=== PATIENT | female | born 1955 | race Caucasian/White ===

== ENCOUNTER 2017-08-23 10:56 | Inpatient (IN) | payer BC ==
[2017-08-23] MEDS ORDERED: Morphine 2 MG/ML Syringe IVPUSH ONE (11:08)
[2017-08-23] MEDS ORDERED: Sodium Chloride 0.9% 1,000 ML IV ONE (11:08)
--- NOTE | 2017-08-23 11:10 | EDM.PDOC ---
ED HPI GENERAL MEDICAL PROBLEM - General Chief Complaint: Abdominal Pain Stated Complaint: ER Time Seen by Provider: 08/23/17 11:06 Source of Information: Reports: Patient, EMS Notes Reviewed, RN, RN Notes Reviewed History Limitations: Reports: No Limitations - History of Present Illness INITIAL COMMENTS - FREE TEXT/NARRATIVE: Patient is brought to the emergency room at [place] via EMS for an acute onset of abdominal pain that started around 9:30 this morning. The patient states her she has not had this pain in the past. The patient states that the pain is sharp and stabbing. The patient denies any radiation of the pain. The patient states the pain is located in the left upper and left lower quadrant of the abdomen. The patient denies any UTI symptoms. The patient states that she has noticed one episode of ariadna stool which was very small. The patient states she feels very nauseated but has not vomited. The patient denies any overt diarrhea. The patient denies any focal neurological deficit. The patient denies any chest pain or shortness of breath. The patient does feel very fatigued and tired. The patient's appetite has decreased over the past few days. The patient states she is trying to stay well-hydrated with good by mouth fluid intake. The patient has not had any change in any medications. The patient currently does not take any NSAIDs. The patient is not on a daily aspirin. The patient does take prednisone 5 mg daily for her rheumatoid arthritis. The patient is also on Enbrel. The patient is currently taking Nexium 40 mg daily for history of peptic ulcer disease. 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 Left Middle Abdominal Pain Score (Numeric/FACES): 8 - Related Data Allergies Allergy/AdvReac Type Severity Reaction Status Date / Time No Known Allergies Allergy Verified 08/23/17 11:25 Home Meds: Home Meds Cetirizine HCl/Pseudoephedrine [Zyrtec-D Tablet] 1 each PO DAILY 07/13/15 [ History] Esomeprazole [NexIUM] 40 mg PO DAILY 07/13/15 [History] Etanercept [Enbrel] 50 mg SQ WEEKLY 07/13/15 [History] Fluticasone Propionate [Flonase] 16 gm NS DAILY 07/13/15 [History] Multivitamin [Multivitamins] 1 each PO DAILY 07/13/15 [History] [place]-3 Fatty Acids [Fish Oil] 300 mg PO DAILY 07/13/15 [History] Sertraline [Zoloft] 200 mg PO DAILY 07/13/15 [History] predniSONE [Prednisone] 5 mg PO DAILY 07/13/15 [History] traMADol HCl [Ultram] 50 mg PO BID PRN 07/13/15 [History] Lisinopril [Lisinopril] 5 tab PO DAILY 08/23/17 [History] Past Medical History Gastrointestinal History: Reports: PUD Musculoskeletal History: Reports: Arthritis Social & Family History - Family History Family Medical History: Noncontributory - Tobacco Use Smoking Status *Q: Never Smoker ED ROS GENERAL - Review of Systems Review Of Systems: See Below Constitutional: Reports: Decreased Appetite. Denies: Fever, Chills Respiratory: Denies: Shortness of Breath, Cough Cardiovascular: Denies: Chest Pain, Palpitations GI/Abdominal: Reports: Abdominal Pain, Bloody Stool, Decreased Appetite, Nausea. Denies: Vomiting ED EXAM, GI/ABD - Physical Exam Exam: See Below Exam Limited By: No Limitations General Appearance: Alert, Mild Distress (due to abdominal pain), Thin Respiratory/Chest: No Respiratory Distress, Lungs Clear, Normal Breath Sounds Cardiovascular: Normal Peripheral Pulses, Regular Rate, Rhythm, No Murmur GI/Abdominal Exam: Soft, Tender (LUQ and LLQ), Abnormal Bowel Sounds ( Hyperactive) Rectal (Female) Exam: Deferred Neurological: Alert, Oriented Skin Exam: Warm, Dry, Intact, No Rash, Pallor Course - Vital Signs Last Recorded V/S: Last Vital Signs Temp 36.3 C 08/23/17 14:03 Pulse 72 08/23/17 14:03 Resp 14 08/23/17 14:03 BP 134/46 L 08/23/17 14:03 Pulse Ox 93 L 08/23/17 14:03 - Orders/Labs/Meds Orders: Active Orders 24 hr Category Date Time Status Abdomen Pelvis w Cont [CT] Stat Exams 08/23/17 11:09 Taken Sodium Chloride 0.9% [Saline Flush] Med 08/23/17 11:07 Active 10 ml FLUSH ASDIRECTED PRN Peripheral IV Insertion Adult [OM.PC] Routine Oth 08/23/17 11:07 Ordered Medication Orders Sodium Chloride (Saline Flush) 10 ml FLUSH ASDIRECTED PRN PRN Reason: Keep Vein Open Labs: Laboratory Tests 08/23/17 08/23/17 08/23/17 Range/Units 11:17 11:17 11:17 WBC 8.9 (4.0-10.0) x10^3/uL RBC 2.86 L (4.00-5.50) x10^6/uL Hgb 8.7 L D (12.0-16.0) g/dL Hct 28.1 L (33.0-47.0) % MCV 98.3 H (78.0-93.0) fL MCH 30.4 (26.0-32.0) pg MCHC 31.0 L (32.0-36.0) g/dL RDW Coeff of Stanley 14.6 (10.0-15.0) % Plt Count 547 H D (130-400) x10^3/uL Add Manual Diff Yes Neutrophils % (Manual) 84 H (50-80) % Band Neutrophils % 4 (0-6) % Lymphocytes % (Manual) 5 L (25-50) % Monocytes % (Manual) 3 (2-11) % Eosinophils % (Manual) 4 (0-4) % Nucleated RBCs 1 (0-5) /100WBC Platelet Estimate Increased H Clumped Platelets Rare H Polychromasia 1+ slight H Hypochromasia 1+ slight H Anisocytosis 1+ slight H Macrocytosis 1+ slight H Stomatocytes 1+ slight H Sodium 140 (136-145) mmol/L Potassium 4.2 (3.5-5.1) mmol/L Chloride 104 (98-107) mmol/L Carbon Dioxide 23 (21-32) mmol/L BUN 27 H (7-18) mg/dL Creatinine 1.3 H (0.55-1.02) mg/dL Est Cr Clr Drug Dosing 36.16 mL/min Estimated GFR (MDRD) 41 Glucose 120 H (74-106) mg/dL Lactic Acid 1.5 (0.4-2.0) mmol/L Calcium 10.1 (8.5-10.1) mg/dL Corrected Calcium 10.74 H (8.5-10.1) mg/dL Total Bilirubin < 0.2 L (0.2-1.0) mg/dL AST 24 (15-37) U/L ALT 21 (14-59) U/L Alkaline Phosphatase 79 (46-116) U/L C-Reactive Protein 2.1 H (<=0.9) mg/dL Total Protein 7.1 (6.4-8.2) g/dL Albumin 3.2 L (3.4-5.0) g/dL Globulin 3.9 Albumin/Globulin Ratio 0.82 Amylase 127 H (25-115) U/L Lipase 285 (73-393) U/L Urine Color (YELLOW) Urine Appearance (CLEAR) Urine pH (5.0-8.0) Ur Specific [place] Urine Protein (NEGATIVE) mg/dL Urine Glucose (UA) (NEGATIVE) mg/dL Urine Ketones (NEGATIVE) mg/dL Urine Occult Blood (NEGATIVE) Urine Nitrite (NEGATIVE) Urine Bilirubin (NEGATIVE) Urine Urobilinogen (0.2) EU/dL Ur Leukocyte Esterase (NEGATIVE) Urine RBC (NOT SEEN) /HPF Urine WBC (NOT SEEN) /HPF Ur Transition Epith Cell (NEGATIVE) /HPF Urine Bacteria (NEGATIVE) /HPF Urine Mucus (NEGATIVE) /LPF 08/23/17 Range/Units 13:27 WBC (4.0-10.0) x10^3/uL RBC (4.00-5.50) x10^6/uL Hgb (12.0-16.0) g/dL Hct (33.0-47.0) % MCV (78.0-93.0) fL MCH (26.0-32.0) pg MCHC (32.0-36.0) g/dL RDW Coeff of Stanley (10.0-15.0) % Plt Count (130-400) x10^3/uL Add Manual Diff Neutrophils % (Manual) (50-80) % Band Neutrophils % (0-6) % Lymphocytes % (Manual) (25-50) % Monocytes % (Manual) (2-11) % Eosinophils % (Manual) (0-4) % Nucleated RBCs (0-5) /100WBC Platelet Estimate Clumped Platelets Polychromasia Hypochromasia Anisocytosis Macrocytosis Stomatocytes Sodium (136-145) mmol/L Potassium (3.5-5.1) mmol/L Chloride (98-107) mmol/L Carbon Dioxide (21-32) mmol/L BUN (7-18) mg/dL Creatinine (0.55-1.02) mg/dL Est Cr Clr Drug Dosing mL/min Estimated GFR (MDRD) Glucose (74-106) mg/dL Lactic Acid (0.4-2.0) mmol/L Calcium (8.5-10.1) mg/dL Corrected Calcium (8.5-10.1) mg/dL Total Bilirubin (0.2-1.0) mg/dL AST (15-37) U/L ALT (14-59) U/L Alkaline Phosphatase (46-116) U/L C-Reactive Protein (<=0.9) mg/dL Total Protein (6.4-8.2) g/dL Albumin (3.4-5.0) g/dL Globulin Albumin/Globulin Ratio Amylase (25-115) U/L Lipase (73-393) U/L Urine Color Yellow (YELLOW) Urine Appearance Clear (CLEAR) Urine pH 5.5 (5.0-8.0) Ur Specific [place] <=1.005 Urine Protein Negative (NEGATIVE) mg/dL Urine Glucose (UA) Negative (NEGATIVE) mg/dL Urine Ketones Negative (NEGATIVE) mg/dL Urine Occult Blood Trace-intact H (NEGATIVE) Urine Nitrite Negative (NEGATIVE) Urine Bilirubin Negative (NEGATIVE) Urine Urobilinogen 0.2 (0.2) EU/dL Ur Leukocyte Esterase Negative (NEGATIVE) Urine RBC 0-5 (NOT SEEN) /HPF Urine WBC 0-5 (NOT SEEN) /HPF Ur Transition Epith Cell Rare H (NEGATIVE) /HPF Urine Bacteria Few H (NEGATIVE) /HPF Urine Mucus Rare H (NEGATIVE) /LPF Meds: Medications Generic Name Dose Route Start Last Admin Trade Name Freq PRN Reason Stop Dose Admin Sodium Chloride 10 ml 08/23/17 11:07 Saline Flush FLUSH ASDIRECTED PRN Keep Vein Open Discontinued Medications Generic Name Dose Route Start Last Admin Trade Name Freq PRN Reason Stop Dose Admin Hydromorphone HCl 1 mg 08/23/17 12:23 08/23/17 12:33 Dilaudid IVPUSH 08/23/17 12:24 1 mg ONETIME ONE Administration Sodium Chloride 1,000 mls @ 999 mls/hr 08/23/17 11:08 08/23/17 11:15 Normal Saline IV 08/23/17 12:08 999 mls/hr ONETIME ONE Administration Iopamidol 100 ml 08/23/17 11:36 08/23/17 12:24 Isovue-300 (61%) IVPUSH 08/23/17 11:37 100 ml ONETIME ONE Administration Morphine Sulfate 1 mg 08/23/17 11:08 08/23/17 11:15 Morphine IVPUSH 08/23/17 11:09 1 mg ONETIME ONE Administration Ondansetron HCl 4 mg 08/23/17 11:11 08/23/17 11:21 Zofran IVPUSH 08/23/17 11:12 4 mg ONETIME ONE Administration - Radiology Interpretation Free Text/Narrative:: CT Abd/Pelvis w/contrast: Nonspecific wall thickening of multiple segments of the colon and the distal 3rd of the stomach which may be inflammatory, infectious, or neoplastic. Apparent interval resection of a complex pelvic mass. No residual ascites. See scanned report in EMR. CT Results Date: 08/23/17 CT Results Time: 12:42 Departure - Departure Time of Disposition: 13:57 Disposition: Admitted As Inpatient 64 Condition: Good Clinical Impression: Low hemoglobin, Acute kidney injury Abdominal pain Qualifiers: Abdominal location: upper abdomen Qualified Code(s): R10.10 - Upper abdominal pain, unspecified - Discharge Information ED Communication - ED Communication Date/Time Date: 08/23/17 Time Called: 13:27 - Discussed Case With (1) Discussed Case With (1): Outpatient Provider (Dr. Rust, Surgeon. Case discussed. Recommend acute admit as patient is not a surgical candidate for anything acute.) - Conversation Summary Admitting Provider Agreed to Patient's Admission: Yes Patient Aware of Amendments fo Care Plan: Yes - Problem List Review Problem List Initiated/Reviewed/Updated: Yes - My Orders Last 24 Hours: My Active Orders 08/23/17 11:07 Sodium Chloride 0.9% [Saline Flush] 10 ml FLUSH ASDIRECTED PRN Peripheral IV Insertion Adult [OM.PC] Routine 08/23/17 11:09 Abdomen Pelvis w Cont [CT] Stat - Assessment/Plan Last 24 Hours: My Active Orders 08/23/17 11:07 Sodium Chloride 0.9% [Saline Flush] 10 ml FLUSH ASDIRECTED PRN Peripheral IV Insertion Adult [OM.PC] Routine 08/23/17 11:09 Abdomen Pelvis w Cont [CT] Stat Plan: Case discussed with Dr. Rhoades, admitting provider. Patient will be admitted acute for low hemoglobin, JOCY, and abdominal pain. Admission discussed with patient who agrees to stay.
[2017-08-23] MEDS ORDERED: Ondansetron 4 MG/2 ML SDV IVPUSH ONE (11:11)
[2017-08-23] MEDS ORDERED: Iopamidol 612 MG/ML 100 ML Bottle IVPUSH ONE (11:36)
[2017-08-23 11:43] LABS: CHLORIDE,CL 104 mmol/L (98-107); SODIUM,NA 140 mmol/L (136-145)
[2017-08-23] MEDS ORDERED: HYDROmorphone 1 MG/ML Syringe IVPUSH ONE (12:23)
[2017-08-23] MEDS ORDERED: Acetaminophen 325 MG Tab PO PRN (15:13)
[2017-08-23] MEDS ORDERED: Ondansetron 4 MG Tab.DIS PO PRN (15:13)
[2017-08-23] MEDS: Pantoprazole 40 MG Vial IVPUSH SCH ×2 (15:20→19:59)
[2017-08-23] MEDS: metroNIDAZOLE/Normal Saline 500 MG in Premix Bag 1 BAG IV SCH (15:22)
[2017-08-23] MEDS ORDERED: Sodium Chloride 0.9% 1,000 ML IV SCH (15:30)
[2017-08-23] MEDS: Ciprofloxacin in D5W 400 MG in Premix Bag 1 BAG IV SCH ×2 (16:33)
[2017-08-23] MEDS ORDERED: Ibuprofen 200 MG Tab PO STA (22:07)
--- NOTE | 2017-08-23 23:23 | PCM.HP ---
H&P History of Present Illness - General Date of Service: 08/23/17 Admit Problem/Dx: Admission Diagnosis/Problem Admission Diagnosis/Problem Low hemoglobin - History of Present Illness Initial Comments - Free Text/Narative: Chief Complaint: L abdominal pain History of Present Illness: She works at [employer] and was at work today when she started noticing a sharp pain in her L abdomen, first milder and then it became more severe, aching. She did not have any nausea or vomiting. She had a small maroon colored stool but has not had any diarrhea. She decided after lunch to go home and when she got up she had a nearsyncopal spell and coworkers called the ambulance to bring her to ER. By arrival at the ER or shortly after her abdominal pain essentially cleared, but she does have a headache. She has resisted having a colonoscopy, never had one, never had any DX of diverticulosis. In the ER she had a CT of abdomen and pelvis, this did show some intermittent thickening in areas of her transfers and lower colon. Her WBC was normal but had L shift. Amylase was minimally elevated, UA was negative. She does have Hx of peptic ulcer disease and gastritis. Is on PPI. Hb, which had been 12.3 in 05/11 has dropped to 8.7, with mild macrocytosis. She has known Chronic Kidney Disease stage 3, and her GFR in the ER was 41, unchanged. In the ER they did a phone consult with surgery, recommended to put her on IV antibiotic and give her blood. She is just about to get that at the time of this exam. Medical History: -Rheumatoid arthritis for about 20 years, Rx with prednisone and Enbrel -Pseudogout of wrist 06/06 -Peptic ulcer disease 06/07 DX of osteopenia and 12, irritable bowel syndrome , hypertension and hypercalcemia. -Rx for depression 04/01, recently her dose of Zoloft was increased -Hx of anemia 02/01 -Hx allergic rhinitis 09/29 Surgical History: -Para 2 -EGD 08/07, 10/05 hysterectomy for a rapidly enlarging uterus, found to be a dermoid cyst 03/10 -Bilateral total knee replacement 12/08 -Hx reconstruction of rotator cuff of R shoulder for degenerative tendinitis -Cholecystectomy -Appendectomy Family History: Parents and a number of siblings are still living, parents have heart disease Social History: [place], moved with to for his job, they and he moved to [place], she continued to live here and work [employer]. Primary care from [facility] in the clinic. Systems Review: -Constitutional: Thinks her general health has been good -Eyes: Never any cataracts or eye problems -ENT hearing is good and she has her own teeth, recently saw the dentist -Cardiac: Started on lisinopril 05/11 for a new DX of hypertension, no other problems -Pulmonary: Never a smoker, no lung trouble -GI: As above, had gastroenteritis 5 days ago, mainly nausea and vomiting, not diarrhea and has not had any black or bloody stools -: Bladder function is good -Musculoskeletal: Rx by Dr. Dickinson for her rheumatoid arthritis for about 20 years, mainly affecting her hands, knees, and shoulders so she has had knee replacement and shoulder surgery. She will have shoulder surgery again soon on the R by Dr. Ac, her orthopedist. 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 -Neurologic: No problems except for this episode of near syncope; gets headaches when she is under stress, has only had migraines when she is in the hospital; she has a headache now, started about the time of admission -Psych: Chronic depression, on Zoloft for a long time and had her dose increased in April, and says it has helped, mood is quite good now Physical Exam: -General: Does not appear in distress, VS OK -Eyes: Pupils equal -ENT: Teeth, posterior pharynx, tongue normal -Neck: No thyroid enlargement, masses, or bruit -Chest: Lung sounds clear, no respiratory distress or dyspnea -Cardiac: Heart sounds normal and regular, no ankle edema, pulses palpable in feet -Abdomen: No tenderness to palpation, even in LLQ, soft with no distention, no masses palpable -Pelvic and rectal: not done -Extremities: Surgical scars over her knees, thickening of the MCP and IP joints of her hands -Neurologic: Speech, movement of arms and legs, facial muscles all normal and symmetric -Psych: Affect seems normal Impression: -Near syncope secondary to anemia from apparently chronic blood loss AK: Note she is macrocytic rather than microcytic -Hx upper GI bleed from peptic ulcer disease but no evidence of acute GI bleed now -Abnormalities of colon on CT, clearly needs colonoscopy to R/O tumor or inflammatory disease -Rheumatoid arthritis, on prednisone and Enbrel Plan: -Blood transfusion as ordered -Continue antibiotics for now but plan to stop soon if no fever, in view of her negative UA -Should get colonoscopy soon Left Middle Abdominal Pain Score (Numeric/FACES): 0 Headache Pain Score (Numeric/FACES): 3 - Related Data Allergies/Adverse Reactions: Allergies Allergy/AdvReac Type Severity Reaction Status Date / Time No Known Allergies Allergy Verified 08/23/17 11:25 Home Medications: Home Meds Esomeprazole [NexIUM] 40 mg PO DAILY 07/13/15 [History] Etanercept [Enbrel] 50 mg SQ SA@0800 07/13/15 [History] Fluticasone Propionate [Flonase] 1 spray NASBOTH DAILY 07/13/15 [History] Multivitamin [Multivitamins] 1 cap PO DAILY 07/13/15 [History] Sertraline [Zoloft] 200 mg PO DAILY 07/13/15 [History] predniSONE [Prednisone] 5 mg PO DAILY 07/13/15 [History] traMADol HCl [Ultram] 50 mg PO BID PRN 07/13/15 [History] Lisinopril 5 mg PO DAILY 08/23/17 [History] Loratadine/Pseudoephedrine [Hm Allergy-Congestion 12Hr Tab] 1 tab PO DAILY 08/23 [History] [place]-3/DHA/Epa/Fish Oil [[place]-3 Fish Oil 1,000 MG Sfgl] 1,000 mg PO DAILY [History] Past Medical History Cardiovascular History: Reports: High Cholesterol, Hypertension Gastrointestinal History: Reports: PUD Genitourinary History: Reports: Chronic Renal Insuffiency Musculoskeletal History: Reports: Arthritis Psychiatric History: Reports: Depression Hematologic History: Reports: Anemia - Past Surgical History Cardiovascular Surgical History: Reports: None GI Surgical History: Reports: None Female Surgical History: Reports: Hysterectomy Musculoskeletal Surgical History: Reports: None Social & Family History - Family History Family Medical History: Noncontributory - Tobacco Use Smoking Status *Q: Never Smoker Second Hand Smoke Exposure: No - Caffeine Use Caffeine Use: Reports: None - Recreational Drug Use Recreational Drug Use: No H&P Review of Systems - Review of Systems: Review Of Systems: See Below Exam - Exam Exam: See Below - Vital Signs Vital Signs: Last Vital Signs Temp 37.3 C 08/23/17 23:10 Pulse 79 08/23/17 23:10 Resp 16 08/23/17 23:10 BP 138/68 08/23/17 23:10 Pulse Ox 98 08/23/17 23:10 Weight: 58.513 kg - Patient Data Lab Results Last 24 hrs: Laboratory Results - last 24 hr 08/23/17 Range/Units 14:45 Blood Type A POSITIVE Gel Antibody Screen Negative Crossmatch See Detail Result Diagrams: 08/23/17 11:17 08/23/17 11:17 *Q Meaningful Use (ADM) - VTE *Q VTE Criteria *Q: - Stroke *Q Stroke Criteria *Q: - AMI *Q AMI Criteria *Q: Problem List Initiated/Reviewed/Updated: Yes Orders Last 24hrs: Active Orders 24 hr Category Date Time Status Patient Status [ADT] Routine ADT 08/23/17 15:13 Active Antiembolic Devices [RC] ,20 Care 08/23/17 15:16 Active Cardiac Monitoring [RC] 06,10,14,18,22,02 Care 08/23/17 15:14 Active Fecal Occult Bld Scn Imm [RC] ASDIRECTED Care 08/23/17 15:21 Active Height and Weight [RC] .PRN Care 08/23/17 15:13 Active Intake and Output [RC] QSHIFT Care 08/23/17 15:14 Active Notify Provider [RC] .PRN Care 08/23/17 14:45 Active Oxygen Therapy [RC] .PRN Care 08/23/17 15:13 Active Up With Assistance [RC] ,20 Care 08/23/17 15:13 Active VTE/DVT Education [RC] .PRN Care 08/23/17 15:13 Active Vital Signs [RC] 06,10,14,18,22,02 Care 08/23/17 15:13 Active Soft Diet [DIET] Diet 08/23/17 Dinner Active BASIC METABOLIC PANEL,BMP [CHEM] Routine Lab 08/24/17 05:11 Ordered CBC WITH AUTO DIFF [HEME] Routine Lab 08/24/17 05:11 Ordered Acetaminophen [Tylenol] Med 08/23/17 15:13 Active 650 mg PO Q4H PRN Ciprofloxacin in D5W [Cipro in D5W 400 MG/200 ML] 400 Med 08/23/17 17:00 Active mg Premix Bag 1 bag IV Q12H Ondansetron [Zofran ODT] Med 08/23/17 15:13 Active 4 mg PO Q6H PRN Pantoprazole [ProTONIX IV] Med 08/23/17 15:15 Active 40 mg IVPUSH BID Sodium Chloride 0.9% [Normal Saline] 1,000 ml Med 08/23/17 15:30 Active IV ASDIRECTED metroNIDAZOLE/Normal Saline [Flagyl 500 MG in NS 100 ML Med 08/23/17 16:00 Active ] 500 mg Premix Bag 1 bag IV Q8H Antiembolic Hose [OM.PC] Per Unit Routine Oth 08/23/17 15:14 Ordered Blood Transfusion Reflex Orders [OM.PC] Routine Oth 08/23/17 14:45 Ordered Transfuse Red Blood Cells [COMM] Routine Oth 08/23/17 14:45 Ordered Resuscitation Status Routine Resus Stat 08/23/17 15:13 Ordered Medication Orders Acetaminophen (Tylenol) 650 mg PO Q4H PRN PRN Reason: Pain (Mild 1-3)/fever Last Admin: 08/23/17 15:53 Dose: 650 mg Ciprofloxacin/Dextrose 400 mg/ (Premix) 200 mls @ 200 mls/hr IV Q12H [facility] Last Admin: 08/23/17 16:33 Dose: 200 mls/hr Metronidazole 500 mg/ Premix 100 mls @ 100 mls/hr IV Q8H [facility] Last Admin: 08/23/17 15:22 Dose: 100 mls/hr Sodium Chloride (Normal Saline) 1,000 mls @ 75 mls/hr IV ASDIRECTED [facility] Last Admin: 08/23/17 16:30 Dose: 75 mls/hr Ondansetron HCl (Zofran Odt) 4 mg PO Q6H PRN PRN Reason: nausea, able to take PO Pantoprazole Sodium (Protonix Iv) 40 mg IVPUSH BID [facility] Last Admin: 08/23/17 19:59 Dose: 40 mg Admin: 08/23/17 15:20 Dose: 40 mg Sodium Chloride (Saline Flush) 10 ml FLUSH ASDIRECTED PRN PRN Reason: Keep Vein Open
[2017-08-24] MEDS: metroNIDAZOLE/Normal Saline 500 MG in Premix Bag 1 BAG IV SCH ×2 (00:23→07:30)
[2017-08-24] MEDS: Ciprofloxacin in D5W 400 MG in Premix Bag 1 BAG IV SCH ×2 (05:12)
[2017-08-24] MEDS: Sodium Chloride 0.9% 10 ML Syringe FLUSH PRN ×2 (06:30→07:30)
[2017-08-24] MEDS: Pantoprazole 40 MG Vial IVPUSH SCH (07:28)
[2017-08-24] MEDS ORDERED: SUMAtriptan 6 MG/0.5 ML SDV SUBCUT ONE (08:11)
--- NOTE | 2017-08-24 09:19 | PCM.PN ---
- General Info Date of Service: 08/24/17 Admission Dx/Problem (Free Text): History: Because of her near syncopal episode prior to admission yesterday, and because of her Lsided abdominal pain, there was suspicion of diverticulitis and she was given IV fluid and IV antibiotic. She also got 2 units of blood for Hb of 8.5, and today her Hb is up to 10.5. She still has a normal WBC, but still has L shift with lymphopenia. She has a headache, got no relief from the ibuprofen that she got last evening, still has pain behind both eyes which feels like a migraine. As noted in her H& P, she has only had migraines when in the hospital for something else, and on those occasions did get relief from Imitrex. She has no abdominal pain or tenderness today. She is tolerating solid food. 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 Exam: -In mild distress from bilateral headache -Abdomen is soft and nontender, even to rather vigorous palpation on both sides -Extremities warm and dry -Alert and lucid and comfortable Impression: -No sign of diverticulitis, can stop antibiotic -Her biggest need is colonoscopy to assess the bleeding and the thickening of the colon noted on CT -Migraine headache, has responded to Imitrex in the past Plan: -Imitrex SC -DC IV fluid and IV antibiotic -Advanced to regular diet -Anticipate D/C tomorrow, will schedule EGD and colonoscopy - Patient Data Vitals - Most Recent: Last Vital Signs Temp 37.0 C 08/24/17 06:00 Pulse 81 08/24/17 06:00 Resp 14 08/24/17 06:00 BP 137/75 08/24/17 06:00 Pulse Ox 97 08/24/17 06:00 Weight - Most Recent: 58.513 kg I&O - Last 24 Hours: Intake & Output 08/23/17 08/24/17 08/24/17 22:59 06:59 14:59 Intake Total 1107 1428 380 Output Total 800 600 Balance 307 828 380 Lab Results Last 24 Hours: Laboratory Results - last 24 hr 08/23/17 08/24/17 08/24/17 Range/Units 14:45 06:15 06:15 WBC 5.8 (4.0-10.0) x10^3/uL RBC 3.43 L (4.00-5.50) x10^6/uL Hgb 10.2 L D (12.0-16.0) g/dL Hct 32.7 L (33.0-47.0) % MCV 95.3 H D (78.0-93.0) fL MCH 29.7 (26.0-32.0) pg MCHC 31.2 L (32.0-36.0) g/dL RDW Coeff of Stanley 17.2 H (10.0-15.0) % Plt Count 449 H D (130-400) x10^3/uL Neut % (Auto) 66.2 (50.0-80.0) % Lymph % (Auto) 9.0 L (25.0-50.0) % [place] % (Auto) 16.9 H (2.0-11.0) % Eos % (Auto) 7.4 H (0.0-4.0) % Baso % (Auto) 0.5 (0.2-1.2) % Sodium 142 (136-145) mmol/L Potassium 4.3 (3.5-5.1) mmol/L Chloride 109 H (98-107) mmol/L Carbon Dioxide 26 (21-32) mmol/L BUN 19 H (7-18) mg/dL Creatinine 1.2 H (0.55-1.02) mg/dL Est Cr Clr Drug Dosing 39.18 mL/min Estimated GFR (MDRD) 45 Glucose 99 (74-106) mg/dL Calcium 8.4 L D (8.5-10.1) mg/dL Blood Type A POSITIVE Gel Antibody Screen Negative Crossmatch See Detail Med Orders - Current: Current Medications Acetaminophen (Tylenol) 650 mg PO Q4H PRN PRN Reason: Pain (Mild 1-3)/fever Last Admin: 08/23/17 15:53 Dose: 650 mg Ondansetron HCl (Zofran Odt) 4 mg PO Q6H PRN PRN Reason: nausea, able to take PO Pantoprazole Sodium (Protonix Iv) 40 mg IVPUSH BID SANDRA Last Admin: 08/24/17 07:28 Dose: 40 mg Sodium Chloride (Saline Flush) 10 ml FLUSH ASDIRECTED PRN PRN Reason: Keep Vein Open Last Admin: 08/24/17 07:30 Dose: 10 ml Discontinued Medications Hydromorphone HCl (Dilaudid) 1 mg IVPUSH ONETIME ONE Stop: 08/23/17 12:24 Last Admin: 08/23/17 12:33 Dose: 1 mg Sodium Chloride (Normal Saline) 1,000 mls @ 999 mls/hr IV ONETIME ONE Stop: 08/23/17 12:08 Last Admin: 08/23/17 11:15 Dose: 999 mls/hr Ciprofloxacin/Dextrose 400 mg/ (Premix) 200 mls @ 200 mls/hr IV Q12H SANDRA Last Admin: 08/24/17 05:12 Dose: 200 mls/hr Metronidazole 500 mg/ Premix 100 mls @ 100 mls/hr IV Q8H [facility] Last Admin: 08/24/17 07:30 Dose: 100 mls/hr Sodium Chloride (Normal Saline) 1,000 mls @ 75 mls/hr IV ASDIRECTED [facility] Last Admin: 08/23/17 16:30 Dose: 75 mls/hr Ibuprofen (Motrin) 600 mg PO NOW STA Stop: 08/23/17 22:08 Last Admin: 08/23/17 22:42 Dose: 600 mg Iopamidol (Isovue-300 (61%)) 100 ml IVPUSH ONETIME ONE Stop: 08/23/17 11:37 Last Admin: 08/23/17 12:24 Dose: 100 ml Morphine Sulfate (Morphine) 1 mg IVPUSH ONETIME ONE Stop: 08/23/17 11:09 Last Admin: 08/23/17 11:15 Dose: 1 mg Ondansetron HCl (Zofran) 4 mg IVPUSH ONETIME ONE Stop: 08/23/17 11:12 Last Admin: 08/23/17 11:21 Dose: 4 mg Sumatriptan Succinate (Imitrex) 6 mg SUBCUT ONETIME ONE Stop: 08/24/17 08:12 Last Admin: 08/24/17 08:26 Dose: 6 mg - Problem List Review Problem List Initiated/Reviewed/Updated: Yes - My Orders Last 24 Hours: My Active Orders 08/24/17 08:09 Communication Order [RC] ROUTINE 08/24/17 Lunch Regular Diet [DIET] 08/25/17 07:30 CBC WITH AUTO DIFF [HEME] Routine
[2017-08-24 10:07] VITALS: BP 128/58
--- NOTE | 2017-08-24 17:35 | PCM.DCSUM1 ---
Discharge Summary - Hospital Course Free Text/Narrative:: Final Diagnosis: -Acute transient Lsided abdominal pain -Nearsyncopal episode -Migraine headache -CT showing abnormality of colon -Rheumatoid arthritis -Chronic Kidney Disease stage 3 Reason for admission: Acute Lsided abdominal pain at work, nearsyncopal episode while getting ready to go home. Mildly abnormal CT abdomen and pelvis and mildly abnormal CBC (L shift with normal WBC) in ER. Drop in Hb from 10.5 down to 8.5 over 3 months. Initial findings: By the time of arrival in ER the abdominal pain was clearing but she was developing a migraine headache. Abdominal exam unremarkable. WBC 8900 with L shift, lymphopenia. Hb down to 8.5, had been 10.53 months earlier[address] UA negative. CT of abdomen and pelvis in the ER unremarkable except for areas of thickening in the transverse and descending colon. Stool Hemoccult positive. Treatment and Course in Hospital: Because of her nearsyncope she was given IV fluid replacement, and because of the acute Lsided abdominal pain, on suspicion of diverticulitis, was started on Cipro and metronidazole IV. She was transfused 2 units of packed cells, and her Hb on the second hospital day was 10.5. With complete clearing of her abdominal pain and no tenderness on exam the second hospital day, the antibiotic was D/Cd. She tolerated soft diet on the first night and regular diet the second day, so the IV fluid was D/Cd. She remained afebrile. Her migraine headache did not respond to ibuprofen but did respond to SC Imitrex on the day of D/C. Condition on Discharge: -No respiratory distress or cough -Afebrile -Abdomen soft without distention or tenderness -Joint changes of rheumatoid arthritis but no acute warm or red joints Discharge Plan: -Schedule EGD and colonoscopy -Return in a.m. for repeat Hb -Continue F/U with SENTHIL, her PCP - Discharge Data Discharge Date: 08/24/17 Discharge Disposition: Home, Self-Care 01 Condition: Good - Discharge Plan Home Medications: Home Meds Esomeprazole [NexIUM] 40 mg PO DAILY 07/13/15 [History] Etanercept [Enbrel] 50 mg SQ SA@0800 07/13/15 [History] Fluticasone Propionate [Flonase] 1 spray NASBOTH DAILY 07/13/15 [History] Multivitamin [Multivitamins] 1 cap PO DAILY 07/13/15 [History] Sertraline [Zoloft] 200 mg PO DAILY 07/13/15 [History] predniSONE [Prednisone] 5 mg PO DAILY 07/13/15 [History] traMADol HCl [Ultram] 50 mg PO BID PRN 07/13/15 [History] Lisinopril 5 mg PO DAILY 08/23/17 [History] Loratadine/Pseudoephedrine [Hm Allergy-Congestion 12Hr Tab] 1 tab PO DAILY 08/23 [History] [place]-3/DHA/Epa/Fish Oil [[place]-3 Fish Oil 1,000 MG Sfgl] 1,000 mg PO DAILY [History] Acetaminophen [Tylenol] 650 mg PO Q4H PRN tablet 08/24/17 [Rx] - Patient Data Vitals - Most Recent: Last Vital Signs Temp 36.6 C 08/24/17 10:00 Pulse 79 08/24/17 10:00 Resp 16 08/24/17 10:00 BP 128/58 L 08/24/17 10:00 Pulse Ox 100 08/24/17 10:00 Weight - Most Recent: 58.513 kg I&O - Last 24 hours: Intake & Output 08/24/17 08/24/17 08/24/17 06:59 14:59 22:59 Intake Total 1428 620 Output Total 600 900 Balance 828 -280 Lab Results - Last 24 hrs: Laboratory Results - last 24 hr 08/23/17 08/24/17 08/24/17 Range/Units 14:45 06:15 06:15 WBC 5.8 (4.0-10.0) x10^3/uL RBC 3.43 L (4.00-5.50) x10^6/uL Hgb 10.2 L D (12.0-16.0) g/dL Hct 32.7 L (33.0-47.0) % MCV 95.3 H D (78.0-93.0) fL MCH 29.7 (26.0-32.0) pg MCHC 31.2 L (32.0-36.0) g/dL RDW Coeff of Stanley 17.2 H (10.0-15.0) % Plt Count 449 H D (130-400) x10^3/uL Neut % (Auto) 66.2 (50.0-80.0) % Lymph % (Auto) 9.0 L (25.0-50.0) % [place] % (Auto) 16.9 H (2.0-11.0) % Eos % (Auto) 7.4 H (0.0-4.0) % Baso % (Auto) 0.5 (0.2-1.2) % Sodium 142 (136-145) mmol/L Potassium 4.3 (3.5-5.1) mmol/L Chloride 109 H (98-107) mmol/L Carbon Dioxide 26 (21-32) mmol/L BUN 19 H (7-18) mg/dL Creatinine 1.2 H (0.55-1.02) mg/dL Est Cr Clr Drug Dosing 39.18 mL/min Estimated GFR (MDRD) 45 Glucose 99 (74-106) mg/dL Calcium 8.4 L D (8.5-10.1) mg/dL Blood Type A POSITIVE Gel Antibody Screen Negative Crossmatch See Detail Med Orders - Current: Current Medications Discontinued Medications Acetaminophen (Tylenol) 650 mg PO Q4H PRN PRN Reason: Pain (Mild 1-3)/fever Last Admin: 08/23/17 15:53 Dose: 650 mg Hydromorphone HCl (Dilaudid) 1 mg IVPUSH ONETIME ONE Stop: 08/23/17 12:24 Last Admin: 08/23/17 12:33 Dose: 1 mg Sodium Chloride (Normal Saline) 1,000 mls @ 999 mls/hr IV ONETIME ONE Stop: 08/23/17 12:08 Last Admin: 08/23/17 11:15 Dose: 999 mls/hr Ciprofloxacin/Dextrose 400 mg/ (Premix) 200 mls @ 200 mls/hr IV Q12H [facility] Last Admin: 08/24/17 05:12 Dose: 200 mls/hr Metronidazole 500 mg/ Premix 100 mls @ 100 mls/hr IV Q8H [facility] Last Admin: 08/24/17 07:30 Dose: 100 mls/hr Sodium Chloride (Normal Saline) 1,000 mls @ 75 mls/hr IV ASDIRECTED [facility] Last Admin: 08/23/17 16:30 Dose: 75 mls/hr Ibuprofen (Motrin) 600 mg PO NOW STA Stop: 08/23/17 22:08 Last Admin: 08/23/17 22:42 Dose: 600 mg Iopamidol (Isovue-300 (61%)) 100 ml IVPUSH ONETIME ONE Stop: 08/23/17 11:37 Last Admin: 08/23/17 12:24 Dose: 100 ml Morphine Sulfate (Morphine) 1 mg IVPUSH ONETIME ONE Stop: 08/23/17 11:09 Last Admin: 08/23/17 11:15 Dose: 1 mg Ondansetron HCl (Zofran) 4 mg IVPUSH ONETIME ONE Stop: 08/23/17 11:12 Last Admin: 08/23/17 11:21 Dose: 4 mg Ondansetron HCl (Zofran Odt) 4 mg PO Q6H PRN PRN Reason: nausea, able to take PO Pantoprazole Sodium (Protonix Iv) 40 mg IVPUSH BID SANDRA Last Admin: 08/24/17 07:28 Dose: 40 mg Sodium Chloride (Saline Flush) 10 ml FLUSH ASDIRECTED PRN PRN Reason: Keep Vein Open Last Admin: 08/24/17 07:30 Dose: 10 ml Sumatriptan Succinate (Imitrex) 6 mg SUBCUT ONETIME ONE Stop: 08/24/17 08:12 Last Admin: 08/24/17 08:26 Dose: 6 mg *Q Meaningful Use (DIS) - VTE *Q VTE Criteria *Q: - Stroke *Q Stroke Criteria *Q: - AMI *Q AMI Criteria *Q:
== END 2017-08-24 13:20 | disposition home or self-care (01) | DRG 251 ==
LOC: VM.ED 10:56 → VM.MS 13:52
PROVIDERS: ADMIT Nurse Practitioner Family; ATTEND Family Medicine
PROC: 30233N1 Transfusion of Nonautologous Red Blood Cells into Peripheral Vein, Percutaneous Approach (ICD-10-PCS; principal; 2017-08-23)
DX: R10.9 Unspecified abdominal pain (principal); R55 Syncope and collapse; N17.9 Acute kidney failure, unspecified; G43.909 Migraine, unspecified, not intractable, without status migrainosus; M06.9 Rheumatoid arthritis, unspecified; N18.3 Chronic kidney disease, stage 3 (moderate); I12.9 Hypertensive chronic kidney disease with stage 1 through stage 4 chronic kidney disease, or unspecified chronic kidney disease; F32.9 Major depressive disorder, single episode, unspecified; Z79.52 Long term (current) use of systemic steroids; K27.9 Peptic ulcer, site unspecified, unspecified as acute or chronic, without hemorrhage or perforation; D50.0 Iron deficiency anemia secondary to blood loss (chronic)
CPT/HCPCS: 36415; 36430; 74177; 80048; 80053; 81001; 82150; 83605; 83690; 85025; 86140; 86850; 86900; 86901; 86920; 86922; 96361; 96374; 96375; 99285; A9270-GY; C9113; G0328; J0744; J1170; J2270; J2405; J3030; J7030; J7050; P9016; Q9967

== ENCOUNTER 2017-10-20 06:37 | Emergency (ER) | payer BC ==
[2017-10-20] MEDS: Sodium Chloride 0.9% 1,000 ML IV ONE (07:00)
[2017-10-20] MEDS: HYDROmorphone 1 MG/ML Syringe IVPUSH ONE ×2 (07:42→10:07)
[2017-10-20 08:01] LABS: CHLORIDE,CL 96 mmol/L (98-107); SODIUM,NA 134 mmol/L (136-145)
[2017-10-20] MEDS: Lactated Ringers 1,000 ML IV ONE (08:41)
--- NOTE | 2017-10-20 09:59 | EDM.PDOC ---
ED HPI GENERAL MEDICAL PROBLEM - General Chief Complaint: General Stated Complaint: nausea, bilateral shoulder pain Time Seen by Provider: 10/20/17 07:02 Source of Information: Reports: Patient, EMS, EMS Notes Reviewed History Limitations: Reports: No Limitations - History of Present Illness INITIAL COMMENTS - FREE TEXT/NARRATIVE: Patient presents this morning to the emergency room via EMS with complaints of left shoulder pain that started on Wednesday. She does have a known history of severe rheumatoid arthritis with bilateral knee replacements. She is scheduled for surgery to have either a shoulder replacement or repair reverse total shoulder for next week on the right side. Her complaints are isolated more towards an acute pain to her left shoulder which increases with movement or palpation. She also states she hasn't been able to eat very well or drink since this happened as the pain is caused her to be nauseous and she has vomited. She denies headache, shortness of breath, chest pain, abdominal pain, blood in her urine or stool, and is neurologically intact. She does appear dehydrated with very chapped dry lips. Medication history includes weekly enbrel injections Onset: Gradual Onset Date: 10/15/17 Duration: Getting Worse Location: Reports: Upper Extremity, Left Quality: Reports: Sharp, Stabbing Severity: Severe Improves with: Reports: Cold Therapy, Rest Worsens with: Reports: Movement Associated Symptoms: Reports: Nausea/Vomiting Bilateral Shoulder Pain Score (Numeric/FACES): 10 - Related Data Allergies Allergy/AdvReac Type Severity Reaction Status Date / Time Chemical Sensitivities Allergy Respiratory Uncoded 10/20/17 06:42 Distress Home Meds: Home Meds Esomeprazole [NexIUM] 40 mg PO DAILY 07/13/15 [History] Etanercept [Enbrel] 50 mg SQ SA@0800 07/13/15 [History] Fluticasone Propionate [Flonase] 1 spray NASBOTH DAILY 07/13/15 [History] Multivitamin [Multivitamins] 1 cap PO DAILY 07/13/15 [History] Sertraline [Zoloft] 200 mg PO DAILY 07/13/15 [History] predniSONE [Prednisone] 5 mg PO DAILY 07/13/15 [History] traMADol HCl [Ultram] 50 mg PO BID PRN 07/13/15 [History] Lisinopril 5 mg PO DAILY 08/23/17 [History] Loratadine/Pseudoephedrine [Hm Allergy-Congestion 12Hr Tab] 1 tab PO DAILY 08/23 [History] Acetaminophen [Tylenol] 650 mg PO Q4H PRN tablet 08/24/17 [Rx] Alendronate Sodium [Alendronate] 70 mg PO Q7D 09/03/17 [History] Past Medical History HEENT History: Reports: Allergic Rhinitis, Cataract Other HEENT History: myopia-both. presbyopia-both Cardiovascular History: Reports: Hypertension Gastrointestinal History: Reports: Irritable Bowel Syndrome, PUD Genitourinary History: Reports: Renal Disease Musculoskeletal History: Reports: Arthritis, Back Pain, Chronic, Osteoarthritis , RA Other Musculoskeletal History: chondrocalcinosis. pseudogout. osteopenia. connective tissue disease Psychiatric History: Reports: Depression Other Endocrine/Metabolic History: adrenal insufficiency Hematologic History: Reports: Anemia Other Hematologic History: hypercalcemia Other Dermatologic History: alopecia,. actinic keratosis - Past Surgical History Cardiovascular Surgical History: Reports: None GI Surgical History: Reports: None Female Surgical History: Reports: Hysterectomy Musculoskeletal Surgical History: Reports: None Social & Family History - Family History Family Medical History: Noncontributory - Tobacco Use Smoking Status *Q: Never Smoker Second Hand Smoke Exposure: No - Caffeine Use Caffeine Use: Reports: None - Recreational Drug Use Recreational Drug Use: No ED ROS GENERAL - Review of Systems Review Of Systems: See Below Constitutional: Reports: No Symptoms HEENT: Reports: No Symptoms Respiratory: Reports: No Symptoms Cardiovascular: Reports: No Symptoms Endocrine: Reports: No Symptoms GI/Abdominal: Reports: Nausea, Vomiting : Reports: No Symptoms Musculoskeletal: Reports: Shoulder Pain (bilateral, more acute pain to the left side at this time) Skin: Reports: No Symptoms Neurological: Reports: No Symptoms Psychiatric: Reports: No Symptoms Hematologic/Lymphatic: Reports: No Symptoms Immunologic: Reports: No Symptoms ED EXAM, GENERAL - Physical Exam Exam: See Below Exam Limited By: No Limitations General Appearance: Alert, WD/WN, Mild Distress Eye Exam: Bilateral Eye: EOMI, Normal Inspection, PERRL Ears: Normal TMs Nose: Normal Inspection, Normal Mucosa, No Blood Throat/Mouth: Normal Inspection, Normal Lips, Normal Teeth, Normal Gums, Normal Oropharynx, Normal Voice, No Airway Compromise Head: Atraumatic, Normocephalic Neck: Normal Inspection, Supple, Non-Tender, Full Range of Motion Respiratory/Chest: No Respiratory Distress, Lungs Clear, Normal Breath Sounds, No Accessory Muscle Use, Chest Non-Tender Cardiovascular: Normal Peripheral Pulses, Regular Rate, Rhythm, No Edema, No Gallop, No JVD, No Murmur, No Rub Peripheral Pulses: 2+: Posterior Tibial (L), Posterior Tibial (R), Dorsalis Pedis (L), Dorsalis Pedis (R) GI/Abdominal: Normal Bowel Sounds, Soft, Non-Tender, No Organomegaly, No Distention, No Abnormal Bruit, No Mass Back Exam: Normal Inspection, Full Range of Motion, NT Extremities: Limited Range of Motion (shoulders bilaterally have severe pain on movement and palpation) Neurological: Alert, Oriented, CN II-XII Intact, Normal Cognition, Normal Gait, Normal Reflexes, No Motor/Sensory Deficits Psychiatric: Normal Affect, Normal Mood Skin Exam: Warm, Dry, Intact, Normal Color, No Rash Lymphatic: No Adenopathy Course - Vital Signs Last Recorded V/S: Last Vital Signs Temp 37.7 C 10/20/17 06:44 Pulse 101 H 10/20/17 10:41 Resp 22 H 10/20/17 06:44 BP 132/86 10/20/17 10:41 Pulse Ox 100 10/20/17 06:44 - Orders/Labs/Meds Labs: Laboratory Tests 10/20/17 10/20/17 10/20/17 Range/Units 07:25 07:25 07:25 WBC 8.5 (4.0-10.0) x10^3/uL RBC 4.34 (4.00-5.50) x10^6/uL Hgb 12.6 D (12.0-16.0) g/dL Hct 39.7 (33.0-47.0) % MCV 91.5 D (78.0-93.0) fL MCH 29.0 (26.0-32.0) pg MCHC 31.7 L (32.0-36.0) g/dL RDW Coeff of Stanley 14.8 (10.0-15.0) % Plt Count 336 D (130-400) x10^3/uL Neut % (Auto) 81.0 H (50.0-80.0) % Lymph % (Auto) 4.7 L (25.0-50.0) % [place] % (Auto) 14.1 H (2.0-11.0) % Eos % (Auto) 0.1 (0.0-4.0) % Baso % (Auto) 0.1 L (0.2-1.2) % Sodium 134 L (136-145) mmol/L Potassium 3.9 (3.5-5.1) mmol/L Chloride 96 L D (98-107) mmol/L Carbon Dioxide 23 (21-32) mmol/L BUN 21 H (7-18) mg/dL Creatinine 1.0 (0.55-1.02) mg/dL Est Cr Clr Drug Dosing TNP Estimated GFR (MDRD) 56 Glucose 86 (74-106) mg/dL Lactic Acid (0.4-2.0) mmol/L Calcium 9.3 (8.5-10.1) mg/dL Corrected Calcium 10.26 H (8.5-10.1) mg/dL Total Bilirubin 0.3 (0.2-1.0) mg/dL AST 48 H (15-37) U/L ALT 45 (14-59) U/L Alkaline Phosphatase 139 H (46-116) U/L C-Reactive Protein 36.7 H (<=0.9) mg/dL NT-Pro-B Natriuret Pep 393 H (<=125) pg/mL Total Protein 8.0 (6.4-8.2) g/dL Albumin 2.8 L (3.4-5.0) g/dL Globulin 5.2 Albumin/Globulin Ratio 0.54 //18 Range/Units 08:39 WBC (4.0-10.0) x10^3/uL RBC (4.00-5.50) x10^6/uL Hgb (12.0-16.0) g/dL Hct (33.0-47.0) % MCV (78.0-93.0) fL MCH (26.0-32.0) pg MCHC (32.0-36.0) g/dL RDW Coeff of Stanley (10.0-15.0) % Plt Count (130-400) x10^3/uL Neut % (Auto) (50.0-80.0) % Lymph % (Auto) (25.0-50.0) % [place] % (Auto) (2.0-11.0) % Eos % (Auto) (0.0-4.0) % Baso % (Auto) (0.2-1.2) % Sodium (136-145) mmol/L Potassium (3.5-5.1) mmol/L Chloride (98-107) mmol/L Carbon Dioxide (21-32) mmol/L BUN (7-18) mg/dL Creatinine (0.55-1.02) mg/dL Est Cr Clr Drug Dosing Estimated GFR (MDRD) Glucose (74-106) mg/dL Lactic Acid 0.7 (0.4-2.0) mmol/L Calcium (8.5-10.1) mg/dL Corrected Calcium (8.5-10.1) mg/dL Total Bilirubin (0.2-1.0) mg/dL AST (15-37) U/L ALT (14-59) U/L Alkaline Phosphatase (46-116) U/L C-Reactive Protein (<=0.9) mg/dL NT-Pro-B Natriuret Pep (<=125) pg/mL Total Protein (6.4-8.2) g/dL Albumin (3.4-5.0) g/dL Globulin Albumin/Globulin Ratio Meds: Medications Discontinued Medications Generic Name Dose Route Start Last Admin Trade Name Joseluis PRN Reason Stop Dose Admin Hydromorphone HCl 1 mg 10/20/17 07:15 10/20/17 07:42 Dilaudid IVPUSH 10/20/17 07:16 1 mg ONETIME ONE Administration Hydromorphone HCl 1 mg 10/20/17 09:58 10/20/17 10:07 Dilaudid IVPUSH 10/20/17 09:59 1 mg ONETIME ONE Administration Sodium Chloride 1,000 mls @ 999 mls/hr 10/20/17 07:15 10/20/17 07:00 Normal Saline IV 10/20/17 08:15 999 mls/hr ONETIME ONE Administration Lactated Ringer's 1,000 mls @ 999 mls/hr 10/20/17 08:17 10/20/17 08:41 Ringers, Lactated IV 10/20/17 09:17 999 mls/hr .BOLUS ONE Administration - Re-Assessments/Exams Free Text/Narrative Re-Assessment/Exam: 10/20/17 18:45 Patient was rehydrated with 2 liters crystalloid fluids, given 1 mg iv dilaudid x two doses. Sent home with zofran and hydrocodone take home prescriptions. Departure - Departure Time of Disposition: 10:50 Disposition: Home, Self-Care 01 Condition: Good Clinical Impression: Rheumatoid arthritis Shoulder joint painful on movement Qualifiers: Laterality: left Qualified Code(s): M25.512 - Pain in left shoulder Vomiting Qualifiers: Vomiting type: unspecified Vomiting Intractability: non-intractable Nausea presence: with nausea Qualified Code(s): R11.2 - Nausea with vomiting, unspecified - Discharge Information Instructions: Shoulder Pain, Arthritis, [id number] Referrals: Pattie Marrfuo PA-C [Primary Care Provider] - Forms: ED Department Discharge Additional Instructions: Take the pain and nausea medications as needed. Follow up with your housing director rah. Please try to stay hydrated. See your primary provider as symptoms dictate. Please call with any questions or concerns. - Problem List & Annotations (1) Shoulder joint painful on movement SNOMED Code(s): 181760163 Code(s): M25.519 - PAIN IN UNSPECIFIED SHOULDER Status: Acute Priority: Low Qualifiers: Laterality: left Qualified Code(s): M25.512 - Pain in left shoulder (2) Vomiting SNOMED Code(s): 043222228 Code(s): R11.10 - VOMITING, UNSPECIFIED Status: Acute Priority: Low Qualifiers: Vomiting type: unspecified Vomiting Intractability: non-intractable Nausea presence: with nausea Qualified Code(s): R11.2 - Nausea with vomiting, unspecified - Problem List Review Problem List Initiated/Reviewed/Updated: Yes - Assessment/Plan Assessment:: left shoulder pain, secondary to rheumatoid arthritis Nausea/vomiting secondary to pain Plan: Take the pain and nausea medications as needed. Follow up with your housing director rah. Please try to stay hydrated. See your primary provider as symptoms dictate. Please call with any questions or concerns.
[2017-10-20 11:11] VITALS: BP 132/86
== END 2017-10-20 10:50 | disposition home or self-care (01) ==
LOC: VM.ED 06:37
DX: M25.512 Pain in left shoulder (principal); M25.511 Pain in right shoulder; M06.9 Rheumatoid arthritis, unspecified; Z79.899 Other long term (current) drug therapy; I10 Essential (primary) hypertension; M19.90 Unspecified osteoarthritis, unspecified site; R11.2 Nausea with vomiting, unspecified
CPT/HCPCS: 36415; 80053; 83605; 83880; 85025; 86140; 96361; 96374; 96376; 99284; J1170; J7030; J7120

== ENCOUNTER 2017-10-21 03:50 | Emergency (ER) | payer BC ==
[2017-10-21] MEDS ORDERED: HYDROmorphone 1 MG/ML Syringe IVPUSH ONE (04:18)
[2017-10-21] MEDS ORDERED: LORazepam 2 MG/ML SDV IVPUSH ONE (04:18)
[2017-10-21] MEDS ORDERED: Sodium Chloride 0.9% 10 ML Syringe FLUSH PRN (04:18)
[2017-10-21] MEDS ORDERED: Ondansetron 4 MG/2 ML SDV IVPUSH ONE (04:20)
[2017-10-21 06:03] LABS: CHLORIDE,CL 95 mmol/L (98-107); SODIUM,NA 135 mmol/L (136-145)
--- NOTE | 2017-10-21 07:15 | EDM.PDOC ---
ED HPI GENERAL MEDICAL PROBLEM - General Chief Complaint: Upper Extremity Injury/Pain Stated Complaint: Bilateral shoulder pain, SOB Time Seen by Provider: 10/21/17 04:14 Source of Information: Reports: Patient History Limitations: Reports: Other (pain, patient moaning and muscles are tightened) - History of Present Illness INITIAL COMMENTS - FREE TEXT/NARRATIVE: Patient presents this morning via EMS. She has complaints of shortness of breath , abdominal pain, and bilateral shoulder pain. I did see her yesterday with similar complaints of shoulder pain with the left being worse than right. Again she states the acute left shoulder pain started on Wednesday of last week accompanied with nausea and vomiting secondary to severe pain. I did give her 2 L of IV fluids yesterday to rehydrate her as well as Zofran for the nausea and hydrocodone for the pain. On her initial doesn't appear she was febrile at 101.3 with a pulse of 104. She does have severe rheumatoid arthritis and is scheduled for total shoulder surgery on the right side November 03 of this year. No chest pain, headache, blood in urine or stools, LOC. Onset: Gradual Onset Date: 10/15/17 Location: Reports: Chest, Abdomen, Upper Extremity, Left Severity: Moderate Associated Symptoms: Reports: Fever/Chills, Nausea/Vomiting, Shortness of Breath Bilateral shoulders Pain Score (Numeric/FACES): 10 - Related Data Allergies Allergy/AdvReac Type Severity Reaction Status Date / Time Chemical Sensitivities Allergy Respiratory Uncoded 10/21/17 04:16 Distress Home Meds: Home Meds Esomeprazole [NexIUM] 40 mg PO DAILY 07/13/15 [History] Etanercept [Enbrel] 50 mg SQ SA@0800 07/13/15 [History] Fluticasone Propionate [Flonase] 1 spray NASBOTH DAILY 07/13/15 [History] Multivitamin [Multivitamins] 1 cap PO DAILY 07/13/15 [History] Sertraline [Zoloft] 200 mg PO DAILY 07/13/15 [History] predniSONE [Prednisone] 5 mg PO DAILY 07/13/15 [History] traMADol HCl [Ultram] 50 mg PO BID PRN 07/13/15 [History] Lisinopril 5 mg PO DAILY 08/23/17 [History] Loratadine/Pseudoephedrine [Hm Allergy-Congestion 12Hr Tab] 1 tab PO DAILY 08/23 [History] Acetaminophen [Tylenol] 650 mg PO Q4H PRN tablet 08/24/17 [Rx] Alendronate Sodium [Alendronate] 70 mg PO Q7D 09/03/17 [History] Past Medical History HEENT History: Reports: Allergic Rhinitis, Cataract Other HEENT History: myopia-both. presbyopia-both Cardiovascular History: Reports: Hypertension Gastrointestinal History: Reports: Irritable Bowel Syndrome, PUD Genitourinary History: Reports: Renal Disease Musculoskeletal History: Reports: Arthritis, Back Pain, Chronic, Osteoarthritis , RA Other Musculoskeletal History: chondrocalcinosis. pseudogout. osteopenia. connective tissue disease Psychiatric History: Reports: Depression Other Endocrine/Metabolic History: adrenal insufficiency Hematologic History: Reports: Anemia Other Hematologic History: hypercalcemia Other Dermatologic History: alopecia,. actinic keratosis - Past Surgical History Cardiovascular Surgical History: Reports: None GI Surgical History: Reports: None Female Surgical History: Reports: Hysterectomy Musculoskeletal Surgical History: Reports: None Social & Family History - Family History Family Medical History: Noncontributory - Tobacco Use Smoking Status *Q: Never Smoker Second Hand Smoke Exposure: No - Caffeine Use Caffeine Use: Reports: None - Recreational Drug Use Recreational Drug Use: No Review of Systems - Review of Systems Review Of Systems: See Below Constitutional: Reports: Fever Eyes: Reports: No Symptoms Ears: Reports: No Symptoms Nose: Reports: No Symptoms Mouth/Throat: Reports: No Symptoms Respiratory: Reports: Shortness of Breath Cardiovascular: Reports: No Symptoms GI/Abdominal: Reports: Abdominal Pain, Decreased Appetite, Nausea, Vomiting Genitourinary: Reports: No Symptoms Musculoskeletal: Reports: Shoulder Pain Skin: Reports: No Symptoms Neurological: Reports: No Symptoms Psychiatric: Reports: Anxiety ED EXAM, GENERAL - Physical Exam Exam: See Below Exam Limited By: No Limitations General Appearance: Alert, WD/WN, Mild Distress Eye Exam: Bilateral Eye: EOMI, Normal Inspection, PERRL Ears: Normal TMs Nose: Normal Inspection, Normal Mucosa, No Blood Throat/Mouth: Normal Inspection, Normal Lips, Normal Teeth, Normal Gums, Normal Oropharynx, Normal Voice, No Airway Compromise Head: Atraumatic, Normocephalic Neck: Normal Inspection, Supple, Non-Tender, Full Range of Motion Respiratory/Chest: No Respiratory Distress, Lungs Clear, Normal Breath Sounds, No Accessory Muscle Use, Chest Non-Tender Cardiovascular: Normal Peripheral Pulses, Regular Rate, Rhythm, No Edema, No Gallop, No JVD, No Murmur, No Rub Peripheral Pulses: 2+: Posterior Tibial (L), Posterior Tibial (R), Dorsalis Pedis (L), Dorsalis Pedis (R) GI/Abdominal: Normal Bowel Sounds, Soft, Non-Tender, No Organomegaly, No Distention, No Abnormal Bruit, No Mass Extremities: Normal Inspection, No Pedal Edema, Normal Capillary Refill, Limited Range of Motion (shoulders are very painful) Neurological: Alert, Oriented, CN II-XII Intact, Normal Cognition, Normal Gait, Normal Reflexes, No Motor/Sensory Deficits Psychiatric: Anxious Skin Exam: Warm, Dry, Intact, Normal Color, No Rash Lymphatic: No Adenopathy EKG INTERPRETATION EKG Date: 10/21/17 Time: 04:49 Rhythm: Other (sinus tach) Rate (Beats/Min): 112 [place]: Normal P-Wave: Present QRS: Normal ST-T: Normal QT: Normal Comparison: NA - No Prior EKG EKG Interpretation Comments: 1 sinus tachycardia 2. possible left atrial enlargement 3. abnormal rhythm Course - Vital Signs Last Recorded V/S: Last Vital Signs Temp 38.2 C H 10/21/17 07:25 Pulse 103 H 10/21/17 07:25 Resp 18 10/21/17 07:25 BP 116/56 L 10/21/17 07:25 Pulse Ox 97 10/21/17 07:25 - Orders/Labs/Meds Orders: Active Orders 24 hr Category Date Time Status Patient Status [ADT] Routine ADT 10/21/17 04:22 Active EKG 12 Lead [EKG Documentation Completion] [RC] ROUTINE Care 10/21/17 04:32 Active Chest Abdomen Pelvis wo Cont [CT] Stat Exams 10/21/17 05:07 Taken Head wo Cont [CT] Stat Exams 10/21/17 04:59 Taken CULTURE BLOOD [BC] Stat Lab 10/21/17 05:07 Received CULTURE BLOOD [BC] Stat Lab 10/21/17 05:17 Received URINALYSIS W/MICROSCOPIC [UA W/MICROSCOPIC] [URIN] Stat Lab 10/21/17 08:07 Ordered Sodium Chloride 0.9% [Saline Flush] Med 10/21/17 04:18 Active 10 ml FLUSH ASDIRECTED PRN Vancomycin 1,250 mg Med 10/21/17 07:40 Active Sodium Chloride 0.9% [Normal Saline] 250 ml IV ONETIME Blood Culture x2 Reflex Set [OM.PC] Stat Oth 10/21/17 05:00 Ordered Saline Lock Insert [OM.PC] Routine Oth 10/21/17 04:18 Ordered Medication Orders Vancomycin HCl 1,250 mg/ (Sodium Chloride) 250 mls @ 200 mls/hr IV ONETIME ONE Stop: 10/21/17 08:54 Last Admin: 10/21/17 07:53 Dose: 200 mls/hr Sodium Chloride (Saline Flush) 10 ml FLUSH ASDIRECTED PRN PRN Reason: Keep Vein Open Labs: Laboratory Tests 10/21/17 10/21/17 10/21/17 Range/Units 05:07 05:07 05:07 WBC 7.6 (4.0-10.0) x10^3/uL RBC 3.99 L (4.00-5.50) x10^6/uL Hgb 11.4 L (12.0-16.0) g/dL Hct 35.0 (33.0-47.0) % MCV 87.7 D (78.0-93.0) fL MCH 28.6 (26.0-32.0) pg MCHC 32.6 (32.0-36.0) g/dL RDW Coeff of Stanley 14.2 (10.0-15.0) % Plt Count 295 (130-400) x10^3/uL Neut % (Auto) 87.8 H (50.0-80.0) % Lymph % (Auto) 3.2 L (25.0-50.0) % [place] % (Auto) 8.8 (2.0-11.0) % Eos % (Auto) 0.1 (0.0-4.0) % Baso % (Auto) 0.1 L (0.2-1.2) % PT (9.8-11.8) SEC INR (2.0-3.5) POC ABG pH (7.35-7.45) ABG pH POC ABG pCO2 (35-45) mmHG ABG pCO2 POC ABG pO2 (80-105) mmHG ABG pO2 POC ABG HCO3 (22-26) mmol/L ABG HCO3 POC ABG Total CO2 (23-27) mmol/L ABG Total CO2 POC ABG O2 Sat (95-98) % ABG O2 Content POC ABG Base Excess (-2-3) mmol/L ABG Base Excess A-a Gradient Oxygen Flow Rate FiO2 POC FiO2 Blood Gas Comments Sodium 135 L (136-145) mmol/L Potassium 3.0 L (3.5-5.1) mmol/L Chloride 95 L (98-107) mmol/L Carbon Dioxide 25 (21-32) mmol/L BUN 12 (7-18) mg/dL Creatinine 1.1 H (0.55-1.02) mg/dL Est Cr Clr Drug Dosing TNP Estimated GFR (MDRD) 50 Glucose 151 H (74-106) mg/dL Lactic Acid 1.9 (0.4-2.0) mmol/L Calcium 8.5 (8.5-10.1) mg/dL Troponin I (<=0.056) ng/mL NT-Pro-B Natriuret Pep 765 H (<=125) pg/mL TSH, Ultra Sensitive 0.929 (0.358-3.74) uIU/mL 10/21/17 10/21/17 10/21/17 Range/Units 05:07 05:07 06:15 WBC (4.0-10.0) x10^3/uL RBC (4.00-5.50) x10^6/uL Hgb (12.0-16.0) g/dL Hct (33.0-47.0) % MCV (78.0-93.0) fL MCH (26.0-32.0) pg MCHC (32.0-36.0) g/dL RDW Coeff of Stanley (10.0-15.0) % Plt Count (130-400) x10^3/uL Neut % (Auto) (50.0-80.0) % Lymph % (Auto) (25.0-50.0) % [place] % (Auto) (2.0-11.0) % Eos % (Auto) (0.0-4.0) % Baso % (Auto) (0.2-1.2) % PT 10.7 (9.8-11.8) SEC INR 1.0 L (2.0-3.5) POC ABG pH (7.35-7.45) ABG pH Cancelled POC ABG pCO2 (35-45) mmHG ABG pCO2 Cancelled POC ABG pO2 (80-105) mmHG ABG pO2 Cancelled POC ABG HCO3 (22-26) mmol/L ABG HCO3 Cancelled POC ABG Total CO2 (23-27) mmol/L ABG Total CO2 Cancelled POC ABG O2 Sat (95-98) % ABG O2 Content Cancelled POC ABG Base Excess (-2-3) mmol/L ABG Base Excess Cancelled A-a Gradient Cancelled Oxygen Flow Rate Cancelled FiO2 Cancelled POC FiO2 Blood Gas Comments Cancelled Sodium (136-145) mmol/L Potassium (3.5-5.1) mmol/L Chloride (98-107) mmol/L Carbon Dioxide (21-32) mmol/L BUN (7-18) mg/dL Creatinine (0.55-1.02) mg/dL Est Cr Clr Drug Dosing Estimated GFR (MDRD) Glucose (74-106) mg/dL Lactic Acid (0.4-2.0) mmol/L Calcium (8.5-10.1) mg/dL Troponin I < 0.017 (<=0.056) ng/mL NT-Pro-B Natriuret Pep (<=125) pg/mL TSH, Ultra Sensitive (0.358-3.74) uIU/mL 10/21/17 Range/Units 06:17 WBC (4.0-10.0) x10^3/uL RBC (4.00-5.50) x10^6/uL Hgb (12.0-16.0) g/dL Hct (33.0-47.0) % MCV (78.0-93.0) fL MCH (26.0-32.0) pg MCHC (32.0-36.0) g/dL RDW Coeff of Stanley (10.0-15.0) % Plt Count (130-400) x10^3/uL Neut % (Auto) (50.0-80.0) % Lymph % (Auto) (25.0-50.0) % [place] % (Auto) (2.0-11.0) % Eos % (Auto) (0.0-4.0) % Baso % (Auto) (0.2-1.2) % PT (9.8-11.8) SEC INR (2.0-3.5) POC ABG pH 7.436 (7.35-7.45) ABG pH POC ABG pCO2 41 (35-45) mmHG ABG pCO2 POC ABG pO2 67 L (80-105) mmHG ABG pO2 POC ABG HCO3 27 H (22-26) mmol/L ABG HCO3 POC ABG Total CO2 29 H (23-27) mmol/L ABG Total CO2 POC ABG O2 Sat 94 L (95-98) % ABG O2 Content POC ABG Base Excess 3 (-2-3) mmol/L ABG Base Excess A-a Gradient Oxygen Flow Rate FiO2 POC FiO2 0.21 Blood Gas Comments Sodium (136-145) mmol/L Potassium (3.5-5.1) mmol/L Chloride (98-107) mmol/L Carbon Dioxide (21-32) mmol/L BUN (7-18) mg/dL Creatinine (0.55-1.02) mg/dL Est Cr Clr Drug Dosing Estimated GFR (MDRD) Glucose (74-106) mg/dL Lactic Acid (0.4-2.0) mmol/L Calcium (8.5-10.1) mg/dL Troponin I (<=0.056) ng/mL NT-Pro-B Natriuret Pep (<=125) pg/mL TSH, Ultra Sensitive (0.358-3.74) uIU/mL Meds: Medications Generic Name Dose Route Start Last Admin Trade Name Freq PRN Reason Stop Dose Admin Vancomycin HCl 1,250 mg/ 250 mls @ 200 mls/hr 10/21/17 07:40 10/21/17 07:53 Sodium Chloride IV 10/21/17 08:54 200 mls/hr ONETIME ONE Administration Sodium Chloride 10 ml 10/21/17 04:18 Saline Flush FLUSH ASDIRECTED PRN Keep Vein Open Discontinued Medications Generic Name Dose Route Start Last Admin Trade Name Freq PRN Reason Stop Dose Admin Ceftriaxone Sodium 2 gm 10/21/17 07:21 10/21/17 07:35 Rocephin IVPUSH 10/21/17 07:22 2 gm ONETIME ONE Administration Hydromorphone HCl 1 mg 10/21/17 04:18 Dilaudid IVPUSH 10/21/17 04:19 ONETIME ONE Piperacillin Sod/Tazobactam 100 mls @ 200 mls/hr 10/21/17 07:24 10/21/17 07: 43 Sod 3.375 gm/ Sodium Chloride IV 10/21/17 07:53 Not Given ONETIME ONE Lorazepam 0.5 mg 10/21/17 04:18 10/21/17 05:05 Ativan IVPUSH 10/21/17 04:19 0.25 ml ONETIME ONE Administration Ondansetron HCl 4 mg 10/21/17 04:20 10/21/17 04:50 Zofran IVPUSH 10/21/17 04:21 4 mg ONETIME ONE Administration - Radiology Interpretation Free Text/Narrative:: CT Head, chest, abdomen, pelvis: all negative for acute processes - Re-Assessments/Exams Free Text/Narrative Re-Assessment/Exam: 10/21/17 08:01 Once patient had arrived, initial thoughts were that she was febrile, tachycardia likely related to pain. She does take some immunosuppression medications for her RA. CT of the chest abdomen and pelvis ordered, labs were as well. While waiting, she became acutely confused. She did not know where she was, did not know the year or her date of . When asked her age she stated that she was 7. [address] of head ordered. All CT's were negative for acute processes. Normal lactic acid, blood gas did indicate normal pH level, pro Bnp elevated when compared to yesterday's result. I did consult with Dr. Enamorado regarding this patient and the decision was made due to the acute confusion, temperature, and unknown source of possible infection that it a lumbar puncture may be needed and that she should be transferred to [facility] in [place]. I did call and consult with Dr. Mar, hospitalist there. Plan is for her to be taken directly to the ER. Departure - Departure Time of Disposition: 08:20 Disposition: DC/Tfer to [facility] 02 Condition: Fair Clinical Impression: Fever, unknown origin - Discharge Information Referrals: PCP,Unobtain [Primary Care Provider] - Forms: ED Department Discharge, Interfacility Transfer EMTALA ED Communication - ED Communication Date/Time Date: 10/21/17 Time Called: 07:30 - Discussed Case With (1) Discussed Case With (1): Inpatient Rn Occupational Health (I did visit with Dr. Mar, hospitalist at [facility] in [place]. She will be sent to the emergency room for evaluation and possible lumbar puncture. He did give report to ER doctor) - My Orders Last 24 Hours: My Active Orders 10/21/17 04:18 Sodium Chloride 0.9% [Saline Flush] 10 ml FLUSH ASDIRECTED PRN Saline Lock Insert [OM.PC] Routine 10/21/17 04:22 Patient Status [ADT] Routine 10/21/17 04:32 EKG 12 Lead [EKG Documentation Completion] [RC] ROUTINE 10/21/17 04:59 Head wo Cont [CT] Stat 10/21/17 05:00 Blood Culture x2 Reflex Set [OM.PC] Stat 10/21/17 05:07 Chest Abdomen Pelvis wo Cont [CT] Stat CULTURE BLOOD [BC] Stat 10/21/17 05:17 CULTURE BLOOD [BC] Stat 10/21/17 07:40 Vancomycin 1,250 mg Sodium Chloride 0.9% [Normal Saline] 250 ml IV ONETIME 10/21/17 08:07 URINALYSIS W/MICROSCOPIC [UA W/MICROSCOPIC] [URIN] Stat - Assessment/Plan Last 24 Hours: My Active Orders 10/21/17 04:18 Sodium Chloride 0.9% [Saline Flush] 10 ml FLUSH ASDIRECTED PRN Saline Lock Insert [OM.PC] Routine 10/21/17 04:22 Patient Status [ADT] Routine 10/21/17 04:32 EKG 12 Lead [EKG Documentation Completion] [RC] ROUTINE 10/21/17 04:59 Head wo Cont [CT] Stat 10/21/17 05:00 Blood Culture x2 Reflex Set [OM.PC] Stat 10/21/17 05:07 Chest Abdomen Pelvis wo Cont [CT] Stat CULTURE BLOOD [BC] Stat 10/21/17 05:17 CULTURE BLOOD [BC] Stat 10/21/17 07:40 Vancomycin 1,250 mg Sodium Chloride 0.9% [Normal Saline] 250 ml IV ONETIME 10/21/17 08:07 URINALYSIS W/MICROSCOPIC [UA W/MICROSCOPIC] [URIN] Stat
[2017-10-21] MEDS ORDERED: cefTRIAXone 2 GM Vial IVPUSH ONE (07:21)
[2017-10-21] MEDS ORDERED: Piperacillin/Tazobactam 3.375 GM in Sodium Chloride 0.9% 100 ML IV ONE (07:24)
[2017-10-21 07:27] VITALS: BP 116/56
== END 2017-10-21 08:21 | disposition short-term general hospital (02) ==
LOC: VM.ED 03:50
DX: R50.9 Fever, unspecified (principal); I10 Essential (primary) hypertension; Z79.899 Other long term (current) drug therapy
CPT/HCPCS: 36415; 36600; 70450; 71250; 74176; 80048; 81001; 82803; 83605; 83880; 84443; 84484; 85025; 85610; 87040; 87077; 93005; 99285; J0696; J2060; J2405; J3370; J7050

== ENCOUNTER 2017-10-30 07:44 | Observation (INO) | payer BC ==
[2017-10-30] MEDS ORDERED: Sodium Chloride 0.9% 10 ML Syringe FLUSH PRN (08:09)
[2017-10-30] MEDS ORDERED: Sodium Chloride 0.9% 1,000 ML IV ONE (08:26)
[2017-10-30] MEDS: Sodium Chloride 0.9% 1,000 ML IV SCH ×4 (09:12→21:51)
[2017-10-30 09:33] LABS: CHLORIDE,CL 100 mmol/L (98-107); SODIUM,NA 140 mmol/L (136-145)
[2017-10-30] MEDS ORDERED: Lisinopril 5 MG Tab PO SCH (11:30)
[2017-10-30] MEDS: Sertraline 100 MG Tab PO SCH (12:32)
[2017-10-30] MEDS: predniSONE 5 MG Tab PO SCH (12:32)
[2017-10-30] MEDS: cefTRIAXone 2 GM Vial IV SCH (12:34)
[2017-10-30] MEDS: traMADol 50 MG Tab PO PRN ×2 (12:35→21:53)
[2017-10-30] MEDS: Multivitamins with Iron/Calcium/Folic Acid/Minerals Tab PO SCH (12:40)
[2017-10-30] MEDS: Omeprazole 20 MG Cap.CR PO SCH (12:40)
[2017-10-30] MEDS ORDERED: Heparin Sodium 100 Units/ML 3 ML Syringe FLUSH PRN (13:05)
[2017-10-30] MEDS ORDERED: Sodium Chloride 0.9% 10 ML Syringe IV PRN (13:15)
[2017-10-30] MEDS ORDERED: Enoxaparin 40 MG/0.4 ML Syringe SUBCUT SCH ×2 (17:45→20:00)
[2017-10-30] MEDS ORDERED: Gentamicin 40 MG/ML 2 ML Vial IV SCH (18:00)
[2017-10-30] MEDS ORDERED: Gentamicin 190 MG in Sodium Chloride 0.9% 100 ML IV SCH (18:00)
--- NOTE | 2017-10-30 22:16 | EDM.PDOC ---
ED HPI GENERAL MEDICAL PROBLEM - General Chief Complaint: Exposure to Heat or Cold Stated Complaint: hypothermia Time Seen by Provider: 10/30/17 07:44 Source of Information: Reports: Patient, EMS, EMS Notes Reviewed History Limitations: Reports: No Limitations - History of Present Illness INITIAL COMMENTS - FREE TEXT/NARRATIVE: This ER note can be used as an admission H and P. Pt. was found lying outside in the snow this AM. Pt. states that she went outside to take her garbage out and slipped on the ice, possibly striking her head. Pt. states that she was wearing a sweatshirt. She spent the entire night outside. Pt. crawled and rolled a distance so that she would have a better chance of being seen by a passerby. Pt. 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 Her blood cultures are positive. Pt. states that she is not experiencing any chest pain or shortness of breath, and wasn't prior to the fall. She denies any fever or chills prior to the incident. No weakness. EMS was unable to get a tympanic temp on this pt. She was alert and able to answer questions but was very difficult to understand due to shivering. Onset: Today Onset Date: 10/30/17 Location: Reports: Generalized Treatments SECURITY AUDITOR: Reports: Other (see below) Other Treatments SECURITY AUDITOR: warm packs Right Arm Pain Score (Numeric/FACES): 8 - Related Data Allergies Allergy/AdvReac Type Severity Reaction Status Date / Time Chemical Sensitivities Allergy Respiratory Uncoded 10/21/17 04:16 Distress Home Meds: Home Meds Esomeprazole [NexIUM] 40 mg PO DAILY 07/13/15 [History] Fluticasone Propionate [Flonase] 1 spray NASBOTH DAILY 07/13/15 [History] Multivitamin [Multivitamins] 1 tab-cap PO DAILY 07/13/15 [History] Sertraline [Zoloft] 200 mg PO DAILY 07/13/15 [History] predniSONE [Prednisone] 5 mg PO DAILY 07/13/15 [History] traMADol HCl [Ultram] 50 mg PO BID PRN 07/13/15 [History] Loratadine/Pseudoephedrine [Hm Allergy-Congestion 12Hr Tab] 1 tab PO DAILY 08/23 [History] Gentamicin 190 mg IV DAILY@18 10/30/17 [History] Heparin Sodium,Porcine/PF [Heparin 300 Unit/3 ml (100/ml)] 300 unit IV ASDIRECTED PRN 10/30/17 [History] Sodium Chloride 0.9% [Saline Flush Sterile Syringe] 10 ml IV ASDIRECTED PRN 02/09 [History] cefTRIAXone [Rocephin] 2,000 mg IV DAILY@06 10/30/17 [History] Past Medical History HEENT History: Reports: Allergic Rhinitis, Cataract Other HEENT History: myopia-both. presbyopia-both Cardiovascular History: Reports: Hypertension Gastrointestinal History: Reports: Irritable Bowel Syndrome, PUD Genitourinary History: Reports: Renal Disease Musculoskeletal History: Reports: Arthritis, Back Pain, Chronic, Osteoarthritis , RA Other Musculoskeletal History: chondrocalcinosis. pseudogout. osteopenia. connective tissue disease Psychiatric History: Reports: Depression Other Endocrine/Metabolic History: adrenal insufficiency Hematologic History: Reports: Anemia Other Hematologic History: hypercalcemia Other Dermatologic History: alopecia,. actinic keratosis - Past Surgical History Cardiovascular Surgical History: Reports: None GI Surgical History: Reports: None Female Surgical History: Reports: Hysterectomy Musculoskeletal Surgical History: Reports: None Social & Family History - Family History Family Medical History: Noncontributory - Tobacco Use Smoking Status *Q: Never Smoker Second Hand Smoke Exposure: No - Caffeine Use Caffeine Use: Reports: Coffee - Recreational Drug Use Recreational Drug Use: No ED ROS GENERAL - Review of Systems Review Of Systems: See Below Constitutional: Reports: No Symptoms HEENT: Reports: No Symptoms Respiratory: Reports: No Symptoms Cardiovascular: Reports: Other (see HPI) Endocrine: Reports: No Symptoms GI/Abdominal: Reports: No Symptoms : Reports: No Symptoms Musculoskeletal: Reports: No Symptoms Skin: Reports: Erythema, Other (erythema to hands and feet consistent with cold exposure. No valle bite noted.) Neurological: Reports: Numbness Psychiatric: Reports: No Symptoms Hematologic/Lymphatic: Reports: No Symptoms Immunologic: Reports: No Symptoms ED EXAM, GENERAL - Physical Exam Exam: See Below Exam Limited By: Other (shivering) General Appearance: Alert, WD/WN, Moderate Distress Eye Exam: Bilateral Eye: EOMI, Normal Fundi, Normal Inspection, PERRL Ears: Normal External Exam, Normal Canal, Hearing Grossly Normal, Normal TMs Ear Exam: Bilateral Ear: Auricle Normal, Canal Normal, TM normal Nose: Normal Inspection, Normal Mucosa, No Blood Throat/Mouth: Normal Inspection, Normal Lips, Normal Teeth, Normal Gums, Normal Oropharynx, Normal Voice, No Airway Compromise Head: Atraumatic, Normocephalic Neck: Normal Inspection, Supple, Non-Tender, Full Range of Motion Respiratory/Chest: No Respiratory Distress, Lungs Clear, Normal Breath Sounds, No Accessory Muscle Use, Chest Non-Tender Cardiovascular: Normal Peripheral Pulses, Regular Rate, Rhythm, No Edema, No Gallop, No JVD, No Murmur, No Rub Peripheral Pulses: 3+: Radial (L), Radial (R), Posterior Tibial (L), Posterior Tibial (R) GI/Abdominal: Normal Bowel Sounds, Soft, Non-Tender, No Organomegaly, No Distention, No Abnormal Bruit, No Mass (Female) Exam: Deferred Rectal (Female) Exam: Deferred Back Exam: Normal Inspection, Full Range of Motion, NT Extremities: Non-Tender, Pallor, Other (cold to the touch, pallor. erythema to hands and feet) Neurological: Alert, Oriented, CN II-XII Intact, Normal Gait, No Motor/Sensory Deficits, Confused, Abnormal Reflexes (reflexes slow) Psychiatric: Normal Affect, Normal Mood Skin Exam: Cool, Erythema (to dependent areas and hands and feet), Pallor Lymphatic: No Adenopathy ED GENERAL MEDICAL PROCEDURES - Additional/Other Procedure(s) Other (Free Text) Procedure(s): Pt. was given 1 liter of warmed LR IV infused with the [place] warmer. Pt. was also given, warmed, humidified O2. Rectal temp was monitored constantly via probe. Initial rectal temp was between 90 and 91 degrees F. Passive rewarming increased his temp to approx. 94.5 degrees prior to admission. Pt. troponin was positive and CK was elevated. Pt. remained alert and oriented during her stay in ER and continued to be after admission. EKG INTERPRETATION Rhythm: NSR Holt: Normal P-Wave: Present QRS: Normal ST-T: Normal QT: Normal Course - Vital Signs Last Recorded V/S: Last Vital Signs Temp 37.0 C 10/30/17 22:00 Pulse 88 10/30/17 22:00 Resp 18 10/30/17 22:00 BP 106/57 L 10/30/17 22:00 Pulse Ox 98 10/30/17 22:00 - Orders/Labs/Meds Orders: Active Orders 24 hr Category Date Time Status Patient Status [ADT] Routine ADT 10/30/17 10:07 Active Chest 1V Frontal [CR] Stat Exams 10/30/17 08:11 Taken Head wo Cont [CT] Stat Exams 10/30/17 10:06 Taken Sodium Chloride 0.9% [Normal Saline] 1,000 ml Med 10/30/17 09:15 Active IV ASDIRECTED Sodium Chloride 0.9% [Saline Flush] Med 10/30/17 08:09 Active 10 ml FLUSH ASDIRECTED PRN Peripheral IV Insertion Adult [OM.PC] Routine Oth 10/30/17 08:10 Ordered Medication Orders Ceftriaxone Sodium (Rocephin) 2 gm IV DAILY [facility] Last Admin: 10/30/17 12:34 Dose: 2 gm Enoxaparin Sodium (Lovenox) 40 mg SUBCUT DAILY@2000 [facility] Last Admin: 10/30/17 19:54 Dose: 40 mg Heparin Sodium (Porcine) (Heparin Lock Flush 100 Units/Ml) 300 unit FLUSH ASDIRECTED PRN PRN Reason: IV Use Sodium Chloride (Normal Saline) 1,000 mls @ 250 mls/hr IV ASDIRECTED [facility] Last Admin: 10/30/17 21:51 Dose: 250 mls/hr Infusion: 10/30/17 21:21 Dose: 250 mls/hr Admin: 10/30/17 17:21 Dose: 250 mls/hr Infusion: 10/30/17 16:36 Dose: 250 mls/hr Admin: 10/30/17 12:36 Dose: 250 mls/hr Infusion: 10/30/17 12:36 Dose: 250 mls/hr Admin: 10/30/17 09:12 Dose: 250 mls/hr Gentamicin Sulfate 190 mg/ (Sodium Chloride) 104.75 mls @ 209.5 mls/hr IV Q24H [facility] Last Admin: 10/30/17 17:48 Dose: 209.5 mls/hr Multivitamins/Minerals (Thera M Plus) 1 tab PO DAILY [facility] Last Admin: 10/30/17 12:40 Dose: Not Given Omeprazole (Omeprazole) 40 mg PO DAILY@0700 [facility] Last Admin: 10/30/17 12:40 Dose: Not Given Prednisone (Prednisone) 5 mg PO DAILY [facility] Last Admin: 10/30/17 12:32 Dose: 5 mg Sertraline HCl (Zoloft) 200 mg PO DAILY [facility] Last Admin: 10/30/17 12:32 Dose: 200 mg Sodium Chloride (Saline Flush) 10 ml FLUSH ASDIRECTED PRN PRN Reason: Keep Vein Open Sodium Chloride (Saline Flush) 10 ml IV ASDIRECTED PRN PRN Reason: IV USE Tramadol HCl (Ultram) 50 mg PO BID PRN PRN Reason: Pain (moderate 4-6) Last Admin: 10/30/17 21:53 Dose: 50 mg Admin: 10/30/17 12:35 Dose: 50 mg Labs: Laboratory Tests 10/30/17 10/30/17 10/30/17 Range/Units 08:12 08:12 08:12 WBC 22.3 H* (4.0-10.0) x10^3/uL RBC 3.82 L (4.00-5.50) x10^6/uL Hgb 10.9 L (12.0-16.0) g/dL Hct 34.3 (33.0-47.0) % MCV 89.8 (78.0-93.0) fL MCH 28.5 (26.0-32.0) pg MCHC 31.8 L (32.0-36.0) g/dL RDW Coeff of Stanley 15.6 H (10.0-15.0) % Plt Count 781 H D (130-400) x10^3/uL Add Manual Diff Yes Neutrophils % (Manual) 84 H (50-80) % Band Neutrophils % 3 (0-6) % Lymphocytes % (Manual) 5 L (25-50) % Monocytes % (Manual) 8 (2-11) % Platelet Estimate Marked inc H Hypochromasia 1+ slight H Poikilocytosis 3+ marked H Anisocytosis 3+ marked H PT 11.1 (9.8-11.8) SEC INR 1.0 L (2.0-3.5) Sodium 140 (136-145) mmol/L Potassium 4.6 D (3.5-5.1) mmol/L Chloride 100 (98-107) mmol/L Carbon Dioxide 30 (21-32) mmol/L Anion Gap 14.6 (10-20) mmol/l BUN 22 H (7-18) mg/dL Creatinine 0.9 (0.55-1.02) mg/dL Est Cr Clr Drug Dosing 52.24 mL/min Estimated GFR (MDRD) > 60 Glucose 126 H (74-106) mg/dL Lactic Acid (0.4-2.0) mmol/L Calcium 9.4 (8.5-10.1) mg/dL Corrected Calcium 10.60 H (8.5-10.1) mg/dL Phosphorus 4.2 (2.6-4.7) mg/dL Magnesium 1.7 L (1.8-2.4) mg/dL Total Bilirubin 0.3 (0.2-1.0) mg/dL AST 44 H (15-37) U/L ALT 60 H (14-59) U/L Alkaline Phosphatase 89 (46-116) U/L Creatine Kinase (26-192) U/L Troponin I 0.305 H* (<=0.056) ng/mL C-Reactive Protein 7.0 H (<=0.9) mg/dL Total Protein 6.8 (6.4-8.2) g/dL Albumin 2.5 L (3.4-5.0) g/dL Globulin 4.3 g/dL Albumin/Globulin Ratio 0.58 TSH, Ultra Sensitive 1.610 (0.358-3.74) uIU/mL 10/30/17 10/30/17 Range/Units 08:12 08:12 WBC (4.0-10.0) x10^3/uL RBC (4.00-5.50) x10^6/uL Hgb (12.0-16.0) g/dL Hct (33.0-47.0) % MCV (78.0-93.0) fL MCH (26.0-32.0) pg MCHC (32.0-36.0) g/dL RDW Coeff of Stanley (10.0-15.0) % Plt Count (130-400) x10^3/uL Add Manual Diff Neutrophils % (Manual) (50-80) % Band Neutrophils % (0-6) % Lymphocytes % (Manual) (25-50) % Monocytes % (Manual) (2-11) % Platelet Estimate Hypochromasia Poikilocytosis Anisocytosis PT (9.8-11.8) SEC INR (2.0-3.5) Sodium (136-145) mmol/L Potassium (3.5-5.1) mmol/L Chloride (98-107) mmol/L Carbon Dioxide (21-32) mmol/L Anion Gap (10-20) mmol/l BUN (7-18) mg/dL Creatinine (0.55-1.02) mg/dL Est Cr Clr Drug Dosing mL/min Estimated GFR (MDRD) Glucose (74-106) mg/dL Lactic Acid 3.4 H* (0.4-2.0) mmol/L Calcium (8.5-10.1) mg/dL Corrected Calcium (8.5-10.1) mg/dL Phosphorus (2.6-4.7) mg/dL Magnesium (1.8-2.4) mg/dL Total Bilirubin (0.2-1.0) mg/dL AST (15-37) U/L ALT (14-59) U/L Alkaline Phosphatase (46-116) U/L Creatine Kinase 672 H* (26-192) U/L Troponin I (<=0.056) ng/mL C-Reactive Protein (<=0.9) mg/dL Total Protein (6.4-8.2) g/dL Albumin (3.4-5.0) g/dL Globulin g/dL Albumin/Globulin Ratio TSH, Ultra Sensitive (0.358-3.74) uIU/mL Meds: Medications Generic Name Dose Route Start Last Admin Trade Name Freq PRN Reason Stop Dose Admin Ceftriaxone Sodium 2 gm 10/30/17 11:30 10/30/17 12:34 Rocephin IV 2 gm DAILY SANDRA Administration Enoxaparin Sodium 40 mg 10/30/17 20:00 10/30/17 19:54 Lovenox SUBCUT 40 mg DAILY@1999 SANDRA Administration Heparin Sodium (Porcine) 300 unit 10/30/17 13:05 Heparin Lock Flush 100 Units/Ml FLUSH ASDIRECTED PRN IV Use Sodium Chloride 1,000 mls @ 250 mls/hr 10/30/17 09:15 10/30/17 21:51 Normal Saline IV 250 mls/hr ASDIRECTED SANDRA Administration Gentamicin Sulfate 190 mg/ 104.75 mls @ 209.5 mls/hr 10/30/17 18:00 10/30/17 17:48 Sodium Chloride IV 209.5 mls/hr Q24H SANDRA Administration Multivitamins/Minerals 1 tab 10/30/17 11:45 10/30/17 12:40 Thera M Plus PO Not Given DAILY SANDRA Omeprazole 40 mg 10/30/17 12:00 10/30/17 12:40 Omeprazole PO Not Given DAILY@0700 [facility] Prednisone 5 mg 10/30/17 11:30 10/30/17 12:32 Prednisone PO 5 mg DAILY SANDRA Administration Sertraline HCl 200 mg 10/30/17 11:30 10/30/17 12:32 Zoloft PO 200 mg DAILY [facility]A Administration Sodium Chloride 10 ml 10/30/17 08:09 Saline Flush FLUSH ASDIRECTED PRN Keep Vein Open Sodium Chloride 10 ml 10/30/17 13:15 Saline Flush IV ASDIRECTED PRN IV USE Tramadol HCl 50 mg 10/30/17 11:23 10/30/17 21:53 Ultram PO 50 mg BID PRN Administration Pain (moderate 4-6) Discontinued Medications Generic Name Dose Route Start Last Admin Trade Name Freq PRN Reason Stop Dose Admin Enoxaparin Sodium 40 mg 10/30/17 17:45 10/30/17 18:03 Lovenox SUBCUT Not Given DAILY [facility] Gentamicin Sulfate 190 mg 10/30/17 18:00 Gentamicin IV DAILY@18 [facility] Sodium Chloride 1,000 mls @ 999 mls/hr 10/30/17 08:26 10/30/17 08:27 Normal Saline IV 10/30/17 09:26 999 mls/hr ONETIME ONE Administration Lisinopril 5 mg 10/30/17 11:30 10/30/17 12:40 Prinivil PO Not Given DAILY [facility] - Radiology Interpretation Free Text/Narrative:: CT brain was negative Chest XR negative for acute pathology. Departure - Departure Time of Disposition: 10:40 Disposition: Refer to Observation Condition: Good Clinical Impression: Hypothermia - Discharge Information - My Orders Last 24 Hours: My Active Orders 10/30/17 08:09 Sodium Chloride 0.9% [Saline Flush] 10 ml FLUSH ASDIRECTED PRN 10/30/17 08:10 Peripheral IV Insertion Adult [OM.PC] Routine 10/30/17 08:11 Chest 1V Frontal [CR] Stat 10/30/17 09:15 Sodium Chloride 0.9% [Normal Saline] 1,000 ml IV ASDIRECTED 10/30/17 10:06 Head wo Cont [CT] Stat 10/30/17 10:07 Patient Status [ADT] Routine - Assessment/Plan Last 24 Hours: My Active Orders 10/30/17 08:09 Sodium Chloride 0.9% [Saline Flush] 10 ml FLUSH ASDIRECTED PRN 10/30/17 08:10 Peripheral IV Insertion Adult [OM.PC] Routine 10/30/17 08:11 Chest 1V Frontal [CR] Stat 10/30/17 09:15 Sodium Chloride 0.9% [Normal Saline] 1,000 ml IV ASDIRECTED 10/30/17 10:06 Head wo Cont [CT] Stat 10/30/17 10:07 Patient Status [ADT] Routine
[2017-10-30] MEDS ORDERED: Ibuprofen 200 MG Tab PO STA (23:16)
[2017-10-31] MEDS: Sodium Chloride 0.9% 1,000 ML IV SCH ×2 (01:44→05:31)
[2017-10-31] MEDS ORDERED: SUMAtriptan 50 MG Tab PO STA (06:54)
[2017-10-31] MEDS: Omeprazole 20 MG Cap.CR PO SCH (07:18)
[2017-10-31] MEDS: cefTRIAXone 2 GM Vial IV SCH (07:35)
[2017-10-31] MEDS: Multivitamins with Iron/Calcium/Folic Acid/Minerals Tab PO SCH (07:35)
[2017-10-31] MEDS: predniSONE 5 MG Tab PO SCH (07:35)
[2017-10-31] MEDS: Sertraline 100 MG Tab PO SCH (07:35)
[2017-10-31] MEDS ORDERED: Ondansetron 4 MG/2 ML SDV IVPUSH ONE (08:17)
[2017-10-31 08:59] LABS: CHLORIDE,CL 110 mmol/L (98-107); SODIUM,NA 143 mmol/L (136-145)
[2017-10-31 10:18] VITALS: BP 126/86
--- NOTE | 2017-10-31 10:38 | PCM.DCSUM1 ---
Discharge Summary - Hospital Course HPI Initial Comments: Pt. was admitted with hypothermia after slipping on the ice and spending the night outside on the ground. At the time, it was approx. 9 degrees outside. She was found to have a core temp of 91 degrees F on admission to ER and started on warm IV fluids and warmed, humidified O2. She was also noted to be in rhabdomyolysis with and elevated CPK and troponin. These have both trended downward with IV fluids as well. Pt. is requesting to be released, stating she feels much improved. - Discharge Data Discharge Date: 10/31/17 Discharge Disposition: Home, Self-Care 01 Condition: Good - Discharge Diagnosis/Problem(s) (1) Hypothermia SNOMED Code(s): 526406674 ICD Code: T68.XXXA - HYPOTHERMIA, INITIAL ENCOUNTER Status: Acute Current Visit: Yes (2) Acute kidney injury SNOMED Code(s): 44514062 ICD Code: N17.9 - ACUTE KIDNEY FAILURE, UNSPECIFIED Status: Acute Current Visit: No (3) Rhabdomyolysis SNOMED Code(s): 779270979 ICD Code: M62.82 - RHABDOMYOLYSIS Status: Acute Current Visit: Yes - Patient Instructions Diet: Usual Diet as Tolerated Activity: As Tolerated - Discharge Plan Home Medications: Home Meds Esomeprazole [NexIUM] 40 mg PO DAILY 07/13/15 [History] Fluticasone Propionate [Flonase] 1 spray NASBOTH DAILY 07/13/15 [History] Multivitamin [Multivitamins] 1 tab-cap PO DAILY 07/13/15 [History] Sertraline [Zoloft] 200 mg PO DAILY 07/13/15 [History] predniSONE [Prednisone] 5 mg PO DAILY 07/13/15 [History] traMADol HCl [Ultram] 50 mg PO BID PRN 07/13/15 [History] Loratadine/Pseudoephedrine [Hm Allergy-Congestion 12Hr Tab] 1 tab PO DAILY 08/23 [History] Gentamicin 190 mg IV DAILY@18 10/30/17 [History] Heparin Sodium,Porcine/PF [Heparin 300 Unit/3 ml (100/ml)] 300 unit IV ASDIRECTED PRN 10/30/17 [History] Sodium Chloride 0.9% [Saline Flush Sterile Syringe] 10 ml IV ASDIRECTED PRN 02/09 [History] cefTRIAXone [Rocephin] 2,000 mg IV DAILY@06 10/30/17 [History] Gentamicin 190 mg IV Q24H vial 10/31/17 [Rx] cefTRIAXone [Rocephin] 2 gm IV DAILY vial 10/31/17 [Rx] Forms: ED Department Discharge Referrals: Pattie Marrufo PA-C [Primary Care Provider] - - Patient Data Vitals - Most Recent: Last Vital Signs Temp 37.0 C 10/31/17 10:00 Pulse 78 10/31/17 10:00 Resp 20 10/31/17 10:00 BP 126/86 10/31/17 10:00 Pulse Ox 98 10/31/17 10:00 Weight - Most Recent: 67.041 kg I&O - Last 24 hours: Intake & Output 10/30/17 10/31/17 10/31/17 22:59 06:59 14:59 Intake Total 2420 4121 690 Output Total 350 800 Balance 2070 3321 690 Lab Results - Last 24 hrs: Laboratory Results - last 24 hr 10/30/17 10/30/17 10/31/17 Range/Units 16:05 21:10 07:30 WBC 6.7 (4.0-10.0) x10^3/uL RBC 2.94 L (4.00-5.50) x10^6/uL Hgb 8.2 L D (12.0-16.0) g/dL Hct 26.4 L (33.0-47.0) % MCV 89.8 (78.0-93.0) fL MCH 27.9 (26.0-32.0) pg MCHC 31.1 L (32.0-36.0) g/dL RDW Coeff of Stanley 15.4 H (10.0-15.0) % Plt Count 600 H D (130-400) x10^3/uL Neut % (Auto) 73.2 (50.0-80.0) % Lymph % (Auto) 11.8 L (25.0-50.0) % Mcclain % (Auto) 12.6 H (2.0-11.0) % Eos % (Auto) 1.8 (0.0-4.0) % Baso % (Auto) 0.6 (0.2-1.2) % PT (9.8-11.8) SEC INR (2.0-3.5) Sodium (136-145) mmol/L Potassium (3.5-5.1) mmol/L Chloride (98-107) mmol/L Carbon Dioxide (21-32) mmol/L Anion Gap BUN (7-18) mg/dL Creatinine (0.55-1.02) mg/dL Est Cr Clr Drug Dosing mL/min Estimated GFR (MDRD) Glucose (74-106) mg/dL Calcium (8.5-10.1) mg/dL Corrected Calcium (8.5-10.1) mg/dL Total Bilirubin (0.2-1.0) mg/dL AST (15-37) U/L ALT (14-59) U/L Alkaline Phosphatase (46-116) U/L Troponin I 0.498 H* 0.305 H* (<=0.056) ng/mL Total Protein (6.4-8.2) g/dL Albumin (3.4-5.0) g/dL Globulin Albumin/Globulin Ratio 10/31/17 10/31/17 Range/Units 07:30 07:30 WBC (4.0-10.0) x10^3/uL RBC (4.00-5.50) x10^6/uL Hgb (12.0-16.0) g/dL Hct (33.0-47.0) % MCV (78.0-93.0) fL MCH (26.0-32.0) pg MCHC (32.0-36.0) g/dL RDW Coeff of Stanley (10.0-15.0) % Plt Count (130-400) x10^3/uL Neut % (Auto) (50.0-80.0) % Lymph % (Auto) (25.0-50.0) % [place]clain % (Auto) (2.0-11.0) % Eos % (Auto) (0.0-4.0) % Baso % (Auto) (0.2-1.2) % PT 11.0 (9.8-11.8) SEC INR 1.0 L (2.0-3.5) Sodium 143 (136-145) mmol/L Potassium 3.1 L D (3.5-5.1) mmol/L Chloride 110 H (98-107) mmol/L Carbon Dioxide 26 (21-32) mmol/L Anion Gap 10.1 BUN 11 (7-18) mg/dL Creatinine 0.9 (0.55-1.02) mg/dL Est Cr Clr Drug Dosing 52.24 mL/min Estimated GFR (MDRD) > 60 Glucose 76 (74-106) mg/dL Calcium 7.7 L D (8.5-10.1) mg/dL Corrected Calcium 9.30 (8.5-10.1) mg/dL Total Bilirubin 0.3 (0.2-1.0) mg/dL AST 66 H (15-37) U/L ALT 51 (14-59) U/L Alkaline Phosphatase 67 (46-116) U/L Troponin I 0.185 H* (<=0.056) ng/mL Total Protein 5.8 L (6.4-8.2) g/dL Albumin 2.0 L (3.4-5.0) g/dL Globulin 3.8 Albumin/Globulin Ratio 0.53 KIRBY Results - Last 24 hrs: Microbiology 10/30/17 11:36 MRSA Surveillance Culture - Final Nares, Unspecified NO MRSA ISOLATED Med Orders - Current: Current Medications Ceftriaxone Sodium (Rocephin) 2 gm IV DAILY [facility] Last Admin: 10/31/17 07:35 Dose: 2 gm Enoxaparin Sodium (Lovenox) 40 mg SUBCUT DAILY@1999 [facility] Last Admin: 10/30/17 19:54 Dose: 40 mg Heparin Sodium (Porcine) (Heparin Lock Flush 100 Units/Ml) 300 unit FLUSH ASDIRECTED PRN PRN Reason: IV Use Last Admin: 10/31/17 09:45 Dose: 300 unit Sodium Chloride (Normal Saline) 1,000 mls @ 250 mls/hr IV ASDIRECTED [facility] Last Admin: 10/31/17 05:31 Dose: 250 mls/hr Gentamicin Sulfate 190 mg/ (Sodium Chloride) 104.75 mls @ 209.5 mls/hr IV Q24H [facility] Last Admin: 10/30/17 17:48 Dose: 209.5 mls/hr Multivitamins/Minerals (Thera M Plus) 1 tab PO DAILY [facility] Last Admin: 10/31/17 07:35 Dose: 1 tab Omeprazole (Omeprazole) 40 mg PO DAILY@0700 [facility] Last Admin: 10/31/17 07:18 Dose: 40 mg Prednisone (Prednisone) 5 mg PO DAILY [facility] Last Admin: 10/31/17 07:35 Dose: 5 mg Sertraline HCl (Zoloft) 200 mg PO DAILY [facility] Last Admin: 10/31/17 07:35 Dose: 200 mg Sodium Chloride (Saline Flush) 10 ml FLUSH ASDIRECTED PRN PRN Reason: Keep Vein Open Sodium Chloride (Saline Flush) 10 ml IV ASDIRECTED PRN PRN Reason: IV USE Tramadol HCl (Ultram) 50 mg PO BID PRN PRN Reason: Pain (moderate 4-6) Last Admin: 10/30/17 21:53 Dose: 50 mg Discontinued Medications Enoxaparin Sodium (Lovenox) 40 mg SUBCUT DAILY [facility] Last Admin: 10/30/17 18:03 Dose: Not Given Gentamicin Sulfate (Gentamicin) 190 mg IV DAILY@18 [facility] Sodium Chloride (Normal Saline) 1,000 mls @ 999 mls/hr IV ONETIME ONE Stop: 10/30/17 09:26 Last Admin: 10/30/17 08:27 Dose: 999 mls/hr Ibuprofen (Motrin) 600 mg PO NOW STA Stop: 10/30/17 23:17 Last Admin: 10/30/17 23:53 Dose: 600 mg Lisinopril (Prinivil) 5 mg PO DAILY [facility] Last Admin: 10/30/17 12:40 Dose: Not Given Ondansetron HCl (Zofran) 4 mg IVPUSH ONETIME ONE Stop: 10/31/17 08:18 Last Admin: 10/31/17 08:40 Dose: 4 mg Sumatriptan Succinate (Imitrex) 50 mg PO ONETIME STA Stop: 10/31/17 06:55 Last Admin: 10/31/17 07:18 Dose: 50 mg
== END 2017-10-31 11:05 | disposition home or self-care (01) ==
LOC: VM.ED 07:44 → VM.MS 10:07
PROVIDERS: ADMIT Physician Assistant; ATTEND Physician Assistant
DX: T68.XXXA Hypothermia, initial encounter (principal); N17.9 Acute kidney failure, unspecified; M62.82 Rhabdomyolysis; I10 Essential (primary) hypertension; F32.9 Major depressive disorder, single episode, unspecified; E83.52 Hypercalcemia; Z79.899 Other long term (current) drug therapy; X31.XXXA Exposure to excessive natural cold, initial encounter; Y93.29 Activity, other involving ice and snow; Z91.048 Other nonmedicinal substance allergy status
CPT/HCPCS: 36415; 70450; 71045; 80053; 82550; 83605; 83735; 84100; 84443; 84484; 85025; 85610; 86140; 93005; 96360; 96361; 96372; 96374; 96375; 96376; 99285; A9270-GY; G0378; J0696; J1580; J1642; J1650; J2405; J7030; J7050

== ENCOUNTER 2018-05-01 08:09 | Observation (INO) | payer MEDICARE, OTHER ==
[2018-05-01] MEDS ORDERED: Sodium Chloride 0.9% 10 ML Syringe FLUSH PRN (08:29)
[2018-05-01] MEDS ORDERED: Sodium Chloride 0.9% 1,000 ML IV SCH (08:45)
[2018-05-01 09:18] LABS: ANION GAP 15.6 mmol/L (10-20)
[2018-05-01] MEDS: Metoclopramide 10 MG/2 ML SDV IVPUSH SCH ×3 (10:45→23:46)
[2018-05-01] MEDS ORDERED: traMADol 50 MG Tab PO PRN (10:51)
[2018-05-01] MEDS ORDERED: Dextran 70/Hypromellose/PF Ophth Soln 0.9 ML UD EYEBOTH PRN (11:15)
[2018-05-01] MEDS ORDERED: traZODone 50 MG Tab PO PRN (11:25)
[2018-05-01] MEDS: Lactated Ringers 1,000 ML IV SCH ×2 (11:26→19:38)
[2018-05-01] MEDS ORDERED: Iopamidol 612 MG/ML 100 ML Bottle IVPUSH ONE (12:50)
[2018-05-01] MEDS ORDERED: Ondansetron 4 MG/2 ML SDV IVPUSH PRN (14:00)
--- NOTE | 2018-05-01 14:36 | EDM.PDOC ---
ED HPI GENERAL MEDICAL PROBLEM - General Chief Complaint: Gastrointestinal Problem Stated Complaint: ABD PAIN;N/V Time Seen by Provider: 05/01/18 08:30 Source of Information: Reports: Patient History Limitations: Reports: No Limitations - History of Present Illness INITIAL COMMENTS - FREE TEXT/NARRATIVE: Pt. persents to ER with complaints of severe nausea and vomiting. She states that she was vomiting last night and was profoundly weak. She states that she has to crawl to the bathroom to go vomit. She denies any chest pain or shortness of breath. Denies any significant abdominal pain. She states that she has had endocarditis and has been dealing with hyperkalemia as well. She was recently started on lasix for this. Complains of spasms to her hands as feel as well. States is profoundly weak, and is thirsty, but is unable to hold down any fluids. Onset: Today Onset Date: 04/30/18 Location: Reports: Abdomen, Generalized - Related Data Allergies Allergy/AdvReac Type Severity Reaction Status Date / Time Chemical Sensitivities Allergy Respiratory Uncoded 05/01/18 08:18 Distress Home Meds: Home Meds Esomeprazole [NexIUM] 40 mg PO DAILY 07/13/15 [History] Fluticasone Propionate [Flonase] 1 spray NASBOTH DAILY 07/13/15 [History] Multivitamin [Multivitamins] 1 tab PO DAILY 07/13/15 [History] Sertraline [Zoloft] 200 mg PO DAILY 07/13/15 [History] predniSONE [Prednisone] 5 mg PO DAILY 07/13/15 [History] traMADol HCl [Ultram] 50 mg PO BID PRN 07/13/15 [History] Furosemide [Lasix] 10 mg PO DAILY 05/01/18 [History] Loratadine/Pseudoephedrine [Allergy Relief D 12-Hour Tab] 1 each PO DAILY [History] Propylene Glycol/PEG 400/Pf [Systane 0.3-0.4% Eye Drop] 1 drop EYEBOTH Q4HR PRN 05/01/18 [History] Ranitidine [Zantac] 150 mg PO DAILY 05/01/18 [History] traZODone HCl [Trazodone HCl] 25 mg PO BEDTIME PRN 05/01/18 [History] Past Medical History HEENT History: Reports: Allergic Rhinitis, Cataract Other HEENT History: myopia-both. presbyopia-both Cardiovascular History: Reports: Hypertension Gastrointestinal History: Reports: Irritable Bowel Syndrome, PUD Genitourinary History: Reports: Renal Disease Musculoskeletal History: Reports: Arthritis, Back Pain, Chronic, Osteoarthritis , RA Other Musculoskeletal History: chondrocalcinosis. pseudogout. osteopenia. connective tissue disease Neurological History: Reports: CVA Psychiatric History: Reports: Depression Other Endocrine/Metabolic History: adrenal insufficiency Hematologic History: Reports: Anemia Other Hematologic History: hypercalcemia Other Dermatologic History: alopecia,. actinic keratosis - Past Surgical History Cardiovascular Surgical History: Reports: None GI Surgical History: Reports: None Female Surgical History: Reports: Hysterectomy Musculoskeletal Surgical History: Reports: None Social & Family History - Family History Family Medical History: Noncontributory - Tobacco Use Smoking Status *Q: Never Smoker - Caffeine Use Caffeine Use: Reports: None - Recreational Drug Use Recreational Drug Use: No ED ROS GENERAL - Review of Systems Review Of Systems: See Below Constitutional: Reports: No Symptoms HEENT: Reports: No Symptoms Respiratory: Reports: No Symptoms Cardiovascular: Reports: No Symptoms Endocrine: Reports: No Symptoms GI/Abdominal: Reports: Nausea, Vomiting : Reports: No Symptoms Musculoskeletal: Reports: No Symptoms Skin: Reports: No Symptoms Neurological: Reports: No Symptoms Psychiatric: Reports: No Symptoms Hematologic/Lymphatic: Reports: No Symptoms Immunologic: Reports: No Symptoms ED EXAM, GENERAL - Physical Exam Exam: See Below Exam Limited By: No Limitations General Appearance: Alert, WD/WN, No Apparent Distress Eye Exam: Bilateral Eye: EOMI, Normal Fundi, Normal Inspection, PERRL Throat/Mouth: Normal Inspection, Normal Lips, Normal Teeth, Normal Gums, Normal Oropharynx, Normal Voice, No Airway Compromise Head: Atraumatic, Normocephalic Neck: Normal Inspection, Supple, Non-Tender, Full Range of Motion Respiratory/Chest: No Respiratory Distress, Lungs Clear, Normal Breath Sounds, No Accessory Muscle Use, Chest Non-Tender Cardiovascular: Normal Peripheral Pulses, Regular Rate, Rhythm, No Edema, No Gallop, No JVD, No Murmur, No Rub Peripheral Pulses: 4+: Radial (L), Radial (R) GI/Abdominal: Non-Tender, Tender (diffusely tender. No masses. No hepatosplenomegaly) Back Exam: Normal Inspection, Full Range of Motion, NT Extremities: Normal Inspection, Normal Range of Motion, Non-Tender, Normal Capillary Refill, No Pedal Edema Neurological: Alert, Oriented, CN II-XII Intact, Normal Cognition, Normal Gait, Normal Reflexes, No Motor/Sensory Deficits Psychiatric: Normal Affect, Normal Mood Skin Exam: Warm, Dry, Intact, Normal Color, No Rash Course - Vital Signs Last Recorded V/S: Last Vital Signs Temp 37.2 C 05/01/18 13:48 Pulse 84 05/01/18 13:48 Resp 16 05/01/18 13:48 BP 140/70 05/01/18 13:48 Pulse Ox 99 05/01/18 13:48 - Orders/Labs/Meds Orders: Active Orders 24 hr Category Date Time Status Patient Status [ADT] Routine ADT 05/01/18 09:43 Active Sodium Chloride 0.9% [Saline Flush] Med 05/01/18 08:29 Active 10 ml FLUSH ASDIRECTED PRN Peripheral IV Insertion Adult [OM.PC] Routine Oth 05/01/18 08:29 Ordered Medication Orders Artificial Tears (Tears Naturale Free) 0 each EYEBOTH Q4H PRN PRN Reason: dry eyes Famotidine (Pepcid) 20 mg PO DAILY [facility] Fluticasone Propionate (Flonase) 0 gm NASBOTH DAILY [facility] Furosemide (Lasix) 10 mg PO DAILY [facility] Lactated Ringer's (Ringers, Lactated) 1,000 mls @ 125 mls/hr IV ASDIRECTED [facility] Last Admin: 05/01/18 11:26 Dose: 125 mls/hr Metoclopramide HCl (Reglan) 5 mg IVPUSH Q6H [facility] Last Admin: 05/01/18 10:45 Dose: 5 mg Multivitamins/Minerals (Thera M Plus) 1 tab PO DAILY [facility] Omeprazole (Omeprazole) 40 mg PO DAILY@0700 [facility] Ondansetron HCl (Zofran) 4 mg IVPUSH Q8H PRN PRN Reason: Nausea/Vomiting Last Admin: 05/01/18 13:24 Dose: 4 mg Prednisone (Prednisone) 5 mg PO DAILY [facility] Sertraline HCl (Zoloft) 200 mg PO DAILY [facility] Sodium Chloride (Saline Flush) 10 ml FLUSH ASDIRECTED PRN PRN Reason: Keep Vein Open Tramadol HCl (Ultram) 50 mg PO BID PRN PRN Reason: Pain (moderate 4-6) Trazodone HCl (Trazodone) 25 mg PO BEDTIME PRN PRN Reason: sleep Labs: Laboratory Tests 05/01/18 05/01/18 05/01/18 Range/Units 08:49 08:49 08:49 WBC 6.5 (4.0-10.0) x10^3/uL RBC 3.02 L (4.00-5.50) x10^6/uL Hgb 9.2 L (12.0-16.0) g/dL Hct 28.9 L (33.0-47.0) % MCV 95.7 H D (78.0-93.0) fL MCH 30.5 (26.0-32.0) pg MCHC 31.8 L (32.0-36.0) g/dL RDW Coeff of Stanley 16.2 H (10.0-15.0) % Plt Count 392 D (130-400) x10^3/uL Neut % (Auto) 74.5 (50.0-80.0) % Lymph % (Auto) 13.3 L (25.0-50.0) % Montgomery % (Auto) 10.6 (2.0-11.0) % Eos % (Auto) 1.1 (0.0-4.0) % Baso % (Auto) 0.5 (0.2-1.2) % PT 10.7 (9.6-11.4) SEC INR 1.0 L (2.0-3.5) Sodium 145 (136-145) mmol/L Potassium 3.6 (3.5-5.1) mmol/L Chloride 108 H (98-107) mmol/L Carbon Dioxide 25 (21-32) mmol/L Anion Gap 15.6 (10-20) mmol/L BUN 37 H D (7-18) mg/dL Creatinine 1.2 H (0.55-1.02) mg/dL Est Cr Clr Drug Dosing 40.36 mL/min Estimated GFR (MDRD) 45 Glucose 108 H (74-106) mg/dL Lactic Acid (0.4-2.0) mmol/L Calcium 8.9 (8.5-10.1) mg/dL Corrected Calcium 9.70 (8.5-10.1) mg/dL Phosphorus 2.4 L (2.6-4.7) mg/dL Magnesium 1.8 (1.8-2.4) mg/dL Total Bilirubin 0.2 (0.2-1.0) mg/dL AST 20 (15-37) U/L ALT 25 (14-59) U/L Alkaline Phosphatase 81 (46-116) U/L Creatine Kinase (26-192) U/L C-Reactive Protein 7.6 H (<=0.9) mg/dL Total Protein 7.2 (6.4-8.2) g/dL Albumin 3.0 L (3.4-5.0) g/dL Globulin 4.2 Albumin/Globulin Ratio 0.71 05/01/18 05/01/18 Range/Units 08:49 08:49 WBC (4.0-10.0) x10^3/uL RBC (4.00-5.50) x10^6/uL Hgb (12.0-16.0) g/dL Hct (33.0-47.0) % MCV (78.0-93.0) fL MCH (26.0-32.0) pg MCHC (32.0-36.0) g/dL RDW Coeff of Stanley (10.0-15.0) % Plt Count (130-400) x10^3/uL Neut % (Auto) (50.0-80.0) % Lymph % (Auto) (25.0-50.0) % Montgomery % (Auto) (2.0-11.0) % Eos % (Auto) (0.0-4.0) % Baso % (Auto) (0.2-1.2) % PT (9.6-11.4) SEC INR (2.0-3.5) Sodium (136-145) mmol/L Potassium (3.5-5.1) mmol/L Chloride (98-107) mmol/L Carbon Dioxide (21-32) mmol/L Anion Gap (10-20) mmol/L BUN (7-18) mg/dL Creatinine (0.55-1.02) mg/dL Est Cr Clr Drug Dosing mL/min Estimated GFR (MDRD) Glucose (74-106) mg/dL Lactic Acid 2.1 H* (0.4-2.0) mmol/L Calcium (8.5-10.1) mg/dL Corrected Calcium (8.5-10.1) mg/dL Phosphorus (2.6-4.7) mg/dL Magnesium (1.8-2.4) mg/dL Total Bilirubin (0.2-1.0) mg/dL AST (15-37) U/L ALT (14-59) U/L Alkaline Phosphatase (46-116) U/L Creatine Kinase 98 (26-192) U/L C-Reactive Protein (<=0.9) mg/dL Total Protein (6.4-8.2) g/dL Albumin (3.4-5.0) g/dL Globulin Albumin/Globulin Ratio Meds: Medications Generic Name Dose Route Start Last Admin Trade Name Freq PRN Reason Stop Dose Admin Artificial Tears 0 each 05/01/18 11:15 Tears Naturale Free EYEBOTH Q4H PRN dry eyes Famotidine 20 mg 05/02/18 08:00 Pepcid PO DAILY [facility] Fluticasone Propionate 0 gm 05/02/18 08:00 Flonase NASBOTH DAILY [facility] Furosemide 10 mg 05/02/18 08:00 Lasix PO DAILY [facility] Lactated Ringer's 1,000 mls @ 125 mls/hr 05/01/18 10:45 05/01/18 11:26 Ringers, Lactated IV 125 mls/hr ASDIRECTED [facility]A Administration Metoclopramide HCl 5 mg 05/01/18 11:00 05/01/18 10:45 Reglan IVPUSH 5 mg Q6H [facility] Administration Multivitamins/Minerals 1 tab 05/02/18 08:00 Thera M Plus PO DAILY [facility] Omeprazole 40 mg 05/02/18 07:00 Omeprazole PO DAILY@0700 [facility] Ondansetron HCl 4 mg 05/01/18 14:00 05/01/18 13:24 Zofran IVPUSH 4 mg Q8H PRN Administration Nausea/Vomiting Prednisone 5 mg 05/02/18 08:00 Prednisone PO DAILY [facility] Sertraline HCl 200 mg 05/02/18 08:00 Zoloft PO DAILY [facility] Sodium Chloride 10 ml 05/01/18 08:29 Saline Flush FLUSH ASDIRECTED PRN Keep Vein Open Tramadol HCl 50 mg 05/01/18 10:51 Ultram PO BID PRN Pain (moderate 4-6) Trazodone HCl 25 mg 05/01/18 11:25 Trazodone PO BEDTIME PRN sleep Discontinued Medications Generic Name Dose Route Start Last Admin Trade Name Kevinq PRN Reason Stop Dose Admin Sodium Chloride 1,000 mls @ 1,000 mls/hr 05/01/18 08:45 05/01/18 08:30 Normal Saline IV 1,000 mls/hr ASDIRECTED [facility]A Administration Iopamidol 100 ml 05/01/18 12:50 05/01/18 13:04 Isovue-300 (61%) IVPUSH 05/01/18 12:51 100 ml ONETIME ONE Administration Morphine Sulfate 4 mg 05/01/18 15:25 05/01/18 15:55 Morphine IVPUSH 05/01/18 15:26 4 mg ONETIME ONE Administration Non-Formulary Medication 1 each 05/02/18 08:00 Loratadine/Pseudoephedrine PO DAILY [facility] Prochlorperazine Edisylate 5 mg 05/01/18 15:24 05/01/18 15:54 Compazine IV 05/01/18 15:25 5 mg ONETIME ONE Administration Trazodone HCl 25 mg 05/01/18 20:00 Trazodone PO BEDTIME [facility] - Radiology Interpretation Free Text/Narrative:: CT abdomen and pelvis obtained and negative for acute pathology. No obstruction noted. Departure - Departure Time of Disposition: 10:02 Disposition: Refer to Observation Clinical Impression: Vomiting - Discharge Information - My Orders Last 24 Hours: My Active Orders 05/01/18 08:29 Sodium Chloride 0.9% [Saline Flush] 10 ml FLUSH ASDIRECTED PRN Peripheral IV Insertion Adult [OM.PC] Routine 05/01/18 09:43 Patient Status [ADT] Routine - Assessment/Plan Last 24 Hours: My Active Orders 05/01/18 08:29 Sodium Chloride 0.9% [Saline Flush] 10 ml FLUSH ASDIRECTED PRN Peripheral IV Insertion Adult [OM.PC] Routine 05/01/18 09:43 Patient Status [ADT] Routine Plan: Pt. will be admitted observation. She is a DNR/DNI She is requesting something to eat but continues to vomit, so we will have her NPO. IV LR 125ml/hr. Zofran and reglan for nausea/vomiting. Will recheck her electrolytes tomorrow.
[2018-05-01] MEDS ORDERED: Prochlorperazine 10 MG/2 ML SDV IV ONE (15:24)
[2018-05-01] MEDS ORDERED: Morphine 4 MG/ML Syringe IVPUSH ONE (15:25)
[2018-05-01] MEDS ORDERED: traZODone 50 MG Tab PO SCH (20:00)
[2018-05-01] MEDS ORDERED: Morphine 2 MG/ML Syringe IVPUSH ONE (21:22)
[2018-05-01 22:24] LABS: CHLORIDE,CL 109 mmol/L (98-107); SODIUM,NA 144 mmol/L (136-145)
[2018-05-01 22:28] LABS: ANION GAP 12.6 mmol/L (10-20)
[2018-05-01] MEDS ORDERED: Ketorolac 15 MG/ML SDV IVPUSH STA (23:40)
[2018-05-01] MEDS ORDERED: methylPREDNISolone Sodium Succinate 40 MG/1 ML SDV IVPUSH STA (23:42)
[2018-05-02] MEDS: Lactated Ringers 1,000 ML IV SCH (03:39)
[2018-05-02] MEDS: Metoclopramide 10 MG/2 ML SDV IVPUSH SCH ×2 (04:16→11:39)
[2018-05-02] MEDS ORDERED: Omeprazole 20 MG Cap.CR PO SCH (07:00)
[2018-05-02] MEDS ORDERED: predniSONE 5 MG Tab PO SCH (08:00)
[2018-05-02] MEDS ORDERED: Sertraline 100 MG Tab PO SCH (08:00)
[2018-05-02] MEDS ORDERED: LORATADINE PO SCH (08:00)
[2018-05-02] MEDS ORDERED: Furosemide 20 MG Tab PO SCH (08:00)
[2018-05-02] MEDS ORDERED: PSEUDOEPHEDRINE PO SCH (08:00)
[2018-05-02] MEDS ORDERED: Famotidine 20 MG Tab PO SCH (08:00)
[2018-05-02] MEDS ORDERED: Multivitamins with Iron/Calcium/Folic Acid/Minerals Tab PO SCH (08:00)
[2018-05-02] MEDS ORDERED: Fluticasone Propionate Nasal Spray 16 GM Bottle NASBOTH SCH (08:00)
--- NOTE | 2018-05-02 14:06 | PCM.DCSUM1 ---
Discharge Summary - Hospital Course HPI Initial Comments: Patient admitted with nausea, vomiting, and abdominal pain. She stated this had started on Wednesday. Diagnosis: Stroke: No - Discharge Data Discharge Date: 05/02/18 Discharge Disposition: Home, Self-Care 01 Condition: Good - Discharge Diagnosis/Problem(s) (1) Vomiting SNOMED Code(s): 584283161 ICD Code: R11.10 - VOMITING, UNSPECIFIED Status: Acute Priority: Medium Current Visit: Yes (2) Abdominal pain SNOMED Code(s): 72406463 ICD Code: R10.9 - UNSPECIFIED ABDOMINAL PAIN Status: Acute Priority: Medium Current Visit: No Qualifiers: Abdominal location: left upper quadrant Qualified Code(s): R10.12 - Left upper quadrant pain - Patient Summary/Data Recommended Follow-up Testing/Procedures: Follow up this week with Pattie Marrufo at the clinic for any additional symptom management. If your chest pain returns, take ibuprofen or naproxen. Hospital Course: Patient admitted for nausea vomiting and abdominal pain. She is admitted yesterday observation in made nothing by mouth with IV fluids. In the evening last night's after I had come on shift she complained of left upper quadrant abdominal and chest pain. I did do additional tests including troponin, proBNP, coagulation studies, as well as an additional lactic acid and a basic metabolic panel. All labs at this time were within normal limits and lactic acid had returned to normal. This morning she started asking if she would be discharged so we did advance her diet to clear liquids to a soft diet as she felt comfortable. For lunch she did have the turkey dinner that was provided via the cafeteria and has not had any nausea or vomiting since. She again is requesting to go home. - Patient Instructions Activity: As Tolerated Driving: May Drive Today Showering/Bathing: May Shower Notify Provider of: Nausea and/or Vomiting - Discharge Plan *PRESCRIPTION DRUG MONITORING PROGRAM REVIEWED*: Not Applicable *COPY OF PRESCRIPTION DRUG MONITORING REPORT IN PATIENT MIROSLAVA: Not Applicable Home Medications: Home Meds Esomeprazole [NexIUM] 40 mg PO DAILY 07/13/15 [History] Fluticasone Propionate [Flonase] 1 spray NASBOTH DAILY 07/13/15 [History] Multivitamin [Multivitamins] 1 cap PO DAILY 07/13/15 [History] Sertraline [Zoloft] 200 mg PO DAILY 07/13/15 [History] predniSONE [Prednisone] 5 mg PO DAILY 07/13/15 [History] traMADol HCl [Ultram] 50 mg PO BID PRN 07/13/15 [History] Furosemide [Lasix] 10 mg PO DAILY 05/01/18 [History] Loratadine/Pseudoephedrine [Allergy Relief D 12-Hour Tab] 1 tab PO DAILY [History] Propylene Glycol/PEG 400/Pf [Systane 0.3-0.4% Eye Drop] 1 drop EYEBOTH Q4HR PRN 05/01/18 [History] Ranitidine [Zantac] 150 mg PO DAILY 05/01/18 [History] traZODone HCl [Trazodone HCl] 25 mg PO BEDTIME PRN 05/01/18 [History] Forms: ED Department Discharge Referrals: Pattie Marrufo PA-C [Primary Care Provider] - - General Info Date of Service: 05/02/18 Functional Status: Reports: Pain Controlled - Review of Systems General: Reports: No Symptoms HEENT: Reports: No Symptoms Pulmonary: Reports: No Symptoms Cardiovascular: Reports: No Symptoms Gastrointestinal: Reports: No Symptoms Genitourinary: Reports: No Symptoms Musculoskeletal: Reports: No Symptoms Skin: Reports: No Symptoms Neurological: Reports: No Symptoms Psychiatric: Reports: No Symptoms - Patient Data Vitals - Most Recent: Last Vital Signs Temp 36.6 C 05/02/18 10:00 Pulse 96 05/02/18 10:00 Resp 18 05/02/18 06:00 BP 143/75 H 05/02/18 10:00 Pulse Ox 100 05/02/18 10:00 Weight - Most Recent: 56.472 kg I&O - Last 24 hours: Intake & Output 05/01/18 05/02/18 05/02/18 22:59 06:59 14:59 Intake Total 1640 1620 300 Output Total 500 400 200 Balance 1140 1220 100 Lab Results - Last 24 hrs: Laboratory Results - last 24 hr 05/01/18 05/01/18 05/01/18 Range/Units 21:49 21:49 21:49 PT 10.4 (9.6-11.4) SEC INR 1.0 L (2.0-3.5) Sodium 144 (136-145) mmol/L Potassium 3.6 (3.5-5.1) mmol/L Chloride 109 H (98-107) mmol/L Carbon Dioxide 26 (21-32) mmol/L Anion Gap 12.6 (10-20) mmol/L BUN 24 H (7-18) mg/dL Creatinine 1.0 (0.55-1.02) mg/dL Est Cr Clr Drug Dosing 48.43 mL/min Estimated GFR (MDRD) 56 Glucose 100 (74-106) mg/dL Lactic Acid 0.7 (0.4-2.0) mmol/L Calcium 8.9 (8.5-10.1) mg/dL Magnesium 1.9 (1.8-2.4) mg/dL Troponin I < 0.017 (<=0.056) ng/mL NT-Pro-B Natriuret Pep 185 H (<=125) pg/mL Med Orders - Current: Current Medications Artificial Tears (Tears Naturale Free) 0 each EYEBOTH Q4H PRN PRN Reason: dry eyes Famotidine (Pepcid) 20 mg PO DAILY [facility] Last Admin: 05/02/18 09:00 Dose: 20 mg Fluticasone Propionate (Flonase) 0 gm NASBOTH DAILY [facility] Last Admin: 05/02/18 09:10 Dose: Not Given Furosemide (Lasix) 10 mg PO DAILY [facility] Last Admin: 05/02/18 09:00 Dose: 10 mg Lactated Ringer's (Ringers, Lactated) 1,000 mls @ 125 mls/hr IV ASDIRECTED [facility] Last Admin: 05/02/18 03:39 Dose: 125 mls/hr Metoclopramide HCl (Reglan) 5 mg IVPUSH Q6H [facility] Last Admin: 05/02/18 11:39 Dose: Not Given Multivitamins/Minerals (Thera M Plus) 1 tab PO DAILY [facility] Last Admin: 05/02/18 09:00 Dose: 1 tab Omeprazole (Omeprazole) 40 mg PO DAILY@0700 [facility] Last Admin: 05/02/18 06:35 Dose: 40 mg Ondansetron HCl (Zofran) 4 mg IVPUSH Q8H PRN PRN Reason: Nausea/Vomiting Last Admin: 05/01/18 13:24 Dose: 4 mg Prednisone (Prednisone) 5 mg PO DAILY [facility] Last Admin: 05/02/18 09:00 Dose: 5 mg Sertraline HCl (Zoloft) 200 mg PO DAILY [facility] Last Admin: 05/02/18 08:59 Dose: 200 mg Sodium Chloride (Saline Flush) 10 ml FLUSH ASDIRECTED PRN PRN Reason: Keep Vein Open Tramadol HCl (Ultram) 50 mg PO BID PRN PRN Reason: Pain (moderate 4-6) Trazodone HCl (Trazodone) 25 mg PO BEDTIME PRN PRN Reason: sleep Discontinued Medications Sodium Chloride (Normal Saline) 1,000 mls @ 1,000 mls/hr IV ASDIRECTED [facility] Last Admin: 05/01/18 08:30 Dose: 1,000 mls/hr Iopamidol (Isovue-300 (61%)) 100 ml IVPUSH ONETIME ONE Stop: 05/01/18 12:51 Last Admin: 05/01/18 13:04 Dose: 100 ml Ketorolac Tromethamine (Toradol) 15 mg IVPUSH ONETIME STA Stop: 05/01/18 23:41 Last Admin: 05/01/18 23:53 Dose: 15 mg Methylprednisolone Sodium Succinate (Solu-Medrol) 40 mg IVPUSH ONETIME STA Stop: 05/01/18 23:43 Last Admin: 05/01/18 23:57 Dose: 40 mg Morphine Sulfate (Morphine) 4 mg IVPUSH ONETIME ONE Stop: 05/01/18 15:26 Last Admin: 05/01/18 15:55 Dose: 4 mg Morphine Sulfate (Morphine) 2 mg IVPUSH ONETIME ONE Stop: 05/01/18 21:23 Last Admin: 05/01/18 21:31 Dose: 2 mg Non-Formulary Medication (Loratadine/Pseudoephedrine) 1 each PO DAILY [facility] Prochlorperazine Edisylate (Compazine) 5 mg IV ONETIME ONE Stop: 05/01/18 15:25 Last Admin: 05/01/18 15:54 Dose: 5 mg Trazodone HCl (Trazodone) 25 mg PO BEDTIME [facility] - Exam General: Reports: Alert, Oriented HEENT: Reports: Pupils Equal, Pupils Reactive, EOMI, Mucous Membr. Moist/[place] Neck: Reports: Supple Lungs: Reports: Clear to Auscultation, Normal Respiratory Effort Cardiovascular: Reports: Regular Rate, Regular Rhythm GI/Abdominal Exam: Normal Bowel Sounds, Soft, Non-Tender, No Organomegaly, No Distention, No Abnormal Bruit, No Mass, Pelvis Stable Back Exam: Reports: Normal Inspection, Full Range of Motion Extremities: Normal Inspection, Normal Range of Motion, Non-Tender, No Pedal Edema, Normal Capillary Refill Skin: Reports: Warm, Dry, Intact Wound/Incisions: Reports: Healing Well Neurological: Reports: No New Focal Deficit Psy/Mental Status: Reports: Alert, Normal Affect, Normal Mood
[2018-05-02 14:17] VITALS: BP 139/66
== END 2018-05-02 15:00 | disposition home or self-care (01) ==
LOC: VM.ED 08:09 → VM.MS 09:43
PROVIDERS: ADMIT Physician Assistant; ATTEND Physician Assistant
DX: R11.10 Vomiting, unspecified (principal); R10.9 Unspecified abdominal pain; E87.5 Hyperkalemia; I38 Endocarditis, valve unspecified; I10 Essential (primary) hypertension; M06.9 Rheumatoid arthritis, unspecified; M41.80 Other forms of scoliosis, site unspecified; M47.819 Spondylosis without myelopathy or radiculopathy, site unspecified; F32.9 Major depressive disorder, single episode, unspecified; Z79.899 Other long term (current) drug therapy; Z91.048 Other nonmedicinal substance allergy status
CPT/HCPCS: 36415; 74177; 80048; 80053; 81001; 82550; 83605; 83735; 83880; 84100; 84484; 85025; 85610; 86140; 93005; 96361; 96374; 96375; 96376; 99285; A9270; G0378; J0780; J1885; J2270; J2405; J2765; J2920; J7030; J7120; Q9967; 96360